=== PATIENT | female | born 1940 | race Caucasian/White ===

== ENCOUNTER 2022-03-17 14:17 | Inpatient (IN) ==
[2022-03-17] MEDS ORDERED: SODIUM CHLORIDE 0.9% 1000ML 1,000 ML IV SCH ×3 (14:45→22:37)
[2022-03-17 15:02] LABS: Hematocrit (blood only) 39.2 % (37-47); Hemoglobin 13.1 g/dL (12.0-16.0); Mean Corpuscular Hgb Conc 33.4 g/dL (32-36); Mean Corpuscular Volume 95.6 fL (80-100); Mean Platelet Volume 10.9 fL (7.4-10.4); Platelet Count 203 K/uL (130-400); RDW Coefficient of Variation 14.1 % (11.5-14.5); RDW Standard Deviation 49.6 fL (36.4-46.3); White Blood Count 13.39 K/uL (4.8-10.8)
--- NOTE | 2022-03-17 15:06 | Emergency Department Note ---
History of Present Illness General Chief complaint: Seizure Stated complaint: SEIZURE Time Seen by Provider: 03/17/22 14:27 Source: family Mode of arrival: EMS Limitations: altered mental status History of Present Illness Provider complaint: Seizure This is a 81-year-old female presents emergency department with at bedside via EMS after having a seizure at home. states he is her caregiver she requires total care due to advanced dementia. He states she is often nonverbal. He states she can no longer walk or get to the bathroom and he also has to feed her. He states this morning she seemed to have an episode where her eyes seem to roll back in her head and she began to shake. He states this lasted 5 to 10 minutes. He states during that interim he contacted 911 who advised him to get her out of her wheelchair and lay her on the floor on her side. He states she did appear to be drooling out of her mouth during that time. He states afterwards she seemed unresponsive as if she would fall to sleep. He denies any prior seizure history. No new medications. Pt seen during a time of high acuity and national emergency pandemic while wearing PPE. Home Medications Medication Instructions Recorded Confirmed Type acetaminophen 500 mg tablet 1,000 mg PO Q6H PRN 12/29/18 03/17/22 History aspirin 81 mg tablet,delayed 81 mg PO QAM 12/29/18 03/17/22 History release calcium carbonate 600 mg calcium 600 mg PO QAM 12/29/18 03/17/22 History (1,500 mg) tablet (Calcium) simvastatin 40 mg tablet 40 mg PO PM 12/29/18 03/17/22 History cholecalciferol (vitamin D3) 125 125 mcg PO DAILY 03/17/22 03/17/22 History mcg (5,000 unit) tablet (Vitamin D3) citalopram 10 mg tablet 10 mg PO Q OTHER DAY 03/17/22 03/17/22 History Allergies Allergy/AdvReac Type Severity Reaction Status Date / Time morphine AdvReac Unknown amnesia Verified 03/17/22 16:38 Past Med/Surg History Medical History (Updated 03/19/22 @ 23:35 by Becca Munguia DO) Alzheimer disease COPD (chronic obstructive pulmonary disease) Social History Smoking Status: Never smoker Second Hand Exposure: No; Do You Dip or Chew Tobacco: No; Tobacco Cessation Education Requested by Patient: No Hx Alcohol Use: No Hx Substance Use: No Preferred Language: Zambian Communication Ability: Unable Concession Manager Required: No Beliefs That Will Affect Care: None marital status: Current Living Situation: Spouse Other Information That Helps Us Care for You: Yes (right index finger doesn't straighten out) Feels Safe at Home: Yes Safety Concerns: Feels Safe At This Time Assistive Devices: Wheelchair Review of Systems A total of 10 systems reviewed and were otherwise negative All systems reviewed & are unremarkable except as noted in HPI & below Physical Exam Vital Signs Vital Signs - 24 hr 03/17/22 14:23 03/17/22 14:59 03/17/22 15:00 Temperature 36.8 C Temperature Source Oral Pulse Rate 103 H Pulse Rate [Left Apical] 112 H Pulse Rhythm [Left Apical] Regular Pulse Strength Normal Pulse Strength [Left Apical] Normal Respiratory Rate 17 20 Respiratory Effort / Characteristics Non-Labored Spontaneous Non-Labored Respiratory Depth Normal Normal Respiratory Pattern Blood Pressure 113/83 Blood Pressure [Left Arm] 105/68 Blood Pressure Mean 93 Blood Pressure Mean [Left Arm] 80 Blood Pressure Position Lying Blood Pressure Position [Left Arm] Lying Pulse Oximetry 95 95 Oxygen Delivery Method Nasal Cannula Nasal Cannula Room Air Oxygen Flow Rate 2 2 Sepsis Recent Fever Within 48 Hours No Sepsis New/Unexplained Change in Mental Status Yes Sepsis Action Taken by Nursing No Action Required 03/17/22 17:00 Temperature Temperature Source Pulse Rate Pulse Rate [Left Apical] 118 H Pulse Rhythm [Left Apical] Regular Pulse Strength Pulse Strength [Left Apical] Normal Respiratory Rate 18 Respiratory Effort / Characteristics Non-Labored Respiratory Depth Normal Respiratory Pattern Regular Blood Pressure Blood Pressure [Left Arm] 96/73 L Blood Pressure Mean Blood Pressure Mean [Left Arm] 80 Blood Pressure Position Blood Pressure Position [Left Arm] Lying Pulse Oximetry 94 Oxygen Delivery Method Room Air Oxygen Flow Rate Sepsis Recent Fever Within 48 Hours Sepsis New/Unexplained Change in Mental Status Sepsis Action Taken by Nursing GENERAL: alert, well appearing, well nourished, no distress, non-toxic EYE EXAM: normal conjunctiva, PERRL and EOM's grossly intact OROPHARYNX: no exudate, no erythema, lips, buccal mucosa, and tongue normal and mucous membranes are moist NECK: supple, no nuchal rigidity, no adenopathy, non-tender LUNGS: Clear to auscultation. Normal chest wall mechanics, no w/r/r HEART: no murmurs, S1 normal and S2 normal ABDOMEN: abdomen soft, non-tender, normo-active bowel sounds, no masses, no rebound or guarding. BACK: Back is symmetrical on inspection and there is no deformity, no midline tenderness, no CVA tenderness. SKIN: no rashes and no bruising UPPER EXTREMITIES: upper extremities are grossly normal. FROM, nml pulses b/l. LOWER EXTREMITIES: No pitting edema. FROM, nml pulses b/l. NEURO EXAM: Normal sensorium, cranial nerves II-XII grossly intact, normal speech, no gross weakness of arms, no gross weakness of legs. Gross sensation intact. Course Course 1800: Case discussed with neurology, Dr. Jim. Pt's updated at bedside. He is in agreement for her to be admitted. We discussed code status. 1901: I was notified by nursing staff that pt had an episode of vomiting that appears to darker and possibly had blood. Sample sent to lab for heme testing. 1919: Discucssed with Dr. Pardo. Protonix added for Gi bleed. Administered Medications Citalopram Hydrobromide (Citalopram 20 Mg Tab) 10 mg PO Q48H STEVE Stop: 04/17/22 08:59 Last Admin: 03/18/22 09:10 Dose: 10 mg Documented by: [id number] Pantoprazole Sodium 40 mg/ (Dextrose) 100 mls @ 20 mls/hr IV Q5H STEVE Stop: 04/16/22 19:44 Last Admin: 03/19/22 22:30 Dose: 8 mg/hr, 20 mls/hr Documented by: [id number] Infusion: 03/19/22 22:19 Dose: 8 mg/hr, 20 mls/hr Documented by: [id number] Admin: 03/19/22 17:19 Dose: 8 mg/hr, 20 mls/hr Documented by: [id number] Infusion: 03/19/22 16:33 Dose: 8 mg/hr, 20 mls/hr Documented by: [id number] Admin: 03/19/22 11:33 Dose: 8 mg/hr, 20 mls/hr Documented by: [id number] Infusion: 03/19/22 11:33 Dose: 8 mg/hr, 20 mls/hr Documented by: [id number] Infusion: 03/19/22 10:16 Dose: 8 mg/hr, 20 mls/hr Documented by: [id number] Infusion: 03/19/22 09:48 Dose: 0 mg/hr, 0 mls/hr Documented by: [id number] Admin: 03/19/22 06:20 Dose: 8 mg/hr, 20 mls/hr Documented by: [id number] Infusion: 03/19/22 06:20 Dose: 8 mg/hr, 20 mls/hr Documented by: [id number] Admin: 03/19/22 01:57 Dose: 8 mg/hr, 20 mls/hr Documented by: [id number] Infusion: 03/19/22 01:57 Dose: 8 mg/hr, 20 mls/hr Documented by: [id number] Infusion: 03/18/22 22:00 Dose: 8 mg/hr, 20 mls/hr Documented by: [id number] Infusion: 03/18/22 21:35 Dose: 0 mg/hr, 0 mls/hr Documented by: [id number] Admin: 03/18/22 21:30 Dose: 8 mg/hr, 20 mls/hr Documented by: [id number] Infusion: 03/18/22 21:00 Dose: 8 mg/hr, 20 mls/hr Documented by: [id number] Admin: 03/18/22 16:00 Dose: 8 mg/hr, 20 mls/hr Documented by: [id number] Infusion: 03/18/22 16:00 Dose: 8 mg/hr, 20 mls/hr Documented by: [id number] Admin: 03/18/22 11:00 Dose: 8 mg/hr, 20 mls/hr Documented by: [id number] Infusion: 03/18/22 11:00 Dose: 0 mg/hr, 0 mls/hr Documented by: [id number] Admin: 03/18/22 06:00 Dose: 8 mg/hr, 20 mls/hr Documented by: [id number] Infusion: 03/18/22 06:00 Dose: 8 mg/hr, 20 mls/hr Documented by: [id number] Admin: 03/18/22 01:28 Dose: 8 mg/hr, 20 mls/hr Documented by: [id number] Infusion: 03/18/22 01:21 Dose: 8 mg/hr, 20 mls/hr Documented by: [id number] Admin: 03/17/22 20:21 Dose: 8 mg/hr, 20 mls/hr Documented by: [id number] Levetiracetam 250 mg/ Sodium (Chloride) 102.5 mls @ 420 mls/hr IV Q12H STEVE Stop: 04/17/22 20:59 Last Infusion: 03/19/22 20:07 Dose: 0 mls/hr Documented by: [id number] Admin: 03/19/22 19:52 Dose: 420 mls/hr Documented by: [id number] Infusion: 03/19/22 10:15 Dose: 0 mls/hr Documented by: [id number] Admin: 03/19/22 09:57 Dose: 420 mls/hr Documented by: [id number] Infusion: 03/18/22 22:01 Dose: 0 mls/hr Documented by: [id number] Admin: 03/18/22 21:35 Dose: 420 mls/hr Documented by: [id number] Piperacillin Sod/Tazobactam (Sod 3.375 gm/ Dextrose) 115 mls @ 28.75 mls/hr IV Q8H STEVE; Protocol Stop: 03/21/22 01:59 Last Infusion: 03/19/22 21:54 Dose: 0 mls/hr Documented by: [id number] Admin: 03/19/22 17:54 Dose: 28.8 mls/hr Documented by: [id number] Infusion: 03/19/22 13:42 Dose: 0 mls/hr Documented by: [id number] Admin: 03/19/22 09:31 Dose: 28.8 mls/hr Documented by: [id number] Infusion: 03/19/22 09:24 Dose: 0 mls/hr Documented by: [id number] Admin: 03/19/22 03:18 Dose: 28.8 mls/hr Documented by: [id number] Sodium Chloride (Nss 1000ml) 1,000 mls @ 75 mls/hr IV .[id number] STEVE Stop: 03/20/22 00:38 Last Admin: 03/19/22 11:30 Dose: 75 mls/hr Documented by: [id number] Infusion: 03/19/22 11:03 Dose: 100 mls/hr Documented by: [id number] Admin: 03/19/22 01:03 Dose: 100 mls/hr Documented by: [id number] Simvastatin (Simvastatin 40 Mg Tab) 40 mg PO PM STEVE Stop: 04/16/22 22:36 Last Admin: 03/19/22 19:52 Dose: 40 mg Documented by: [id number] Admin: 03/18/22 21:40 Dose: 40 mg Documented by: [id number] Admin: 03/18/22 01:03 Dose: 40 mg Documented by: [id number] Vitamin D (Cholecalciferol 5,000 Units 125 Mcg Tab) 5,000 units PO DAILY STEVE Stop: 04/17/22 08:59 Last Admin: 03/19/22 09:57 Dose: 5,000 units Documented by: [id number] Admin: 03/18/22 09:10 Dose: 5,000 units Documented by: [id number] Discontinued Medications Sodium Chloride (Nss 1000ml) 1,000 mls @ 125 mls/hr IV .Q8H STEVE Stop: 04/16/22 14:44 Last Infusion: 03/17/22 23:59 Dose: 0 mls/hr Documented by: [id number] Admin: 03/17/22 14:49 Dose: 125 mls/hr Documented by: [id number] Levetiracetam 1,000 mg/ Sodium (Chloride) 110 mls @ 440 mls/hr IV NOW STA Stop: 03/17/22 18:24 Last Infusion: 03/17/22 19:45 Dose: 0 mls/hr Documented by: [id number] Admin: 03/17/22 19:26 Dose: 440 mls/hr Documented by: [id number] Pantoprazole Sodium 40 mg/ (Syringe) 10 mls @ 5 mls/min IV NOW ONE Stop: 03/17/22 19:11 Last Admin: 03/17/22 22:01 Dose: 5 mls/min Documented by: [id number] Sodium Chloride (Nss 1000ml) 1,000 mls @ 125 mls/hr IV .Q8H STEVE Stop: 04/16/22 19:44 Last Infusion: 03/18/22 00:01 Dose: 0 mls/hr Documented by: [id number] Admin: 03/17/22 20:22 Dose: 125 mls/hr Documented by: [id number] Sodium Chloride (Nss 1000ml) 1,000 mls @ 80 mls/hr IV .[id number] STEVE Stop: 03/18/22 11:06 Last Infusion: 03/18/22 12:48 Dose: 0 mls/hr Documented by: [id number] Admin: 03/17/22 23:55 Dose: 80 mls/hr Documented by: [id number] Levetiracetam 500 mg/ Sodium (Chloride) 105 mls @ 420 mls/hr IV Q12H STEVE Stop: 04/17/22 08:59 Last Infusion: 03/18/22 09:20 Dose: 0 mls/hr Documented by: [id number] Admin: 03/18/22 09:05 Dose: 420 mls/hr Documented by: [id number] Piperacillin Sod/Tazobactam (Sod 3.375 gm/ Dextrose) 115 mls @ 230 mls/hr IV NOW ONE; Protocol Stop: 03/18/22 21:44 Last Infusion: 03/18/22 22:31 Dose: 0 mls/hr Documented by: [id number] Admin: 03/18/22 21:55 Dose: 230 mls/hr Documented by: [id number] Sodium Chloride (Nss) 500 mls @ 500 mls/hr IV .Q1H STEVE Stop: 03/18/22 23:59 Last Infusion: 03/19/22 00:04 Dose: 0 mls/hr Documented by: [id number] Admin: 03/18/22 23:00 Dose: 500 mls/hr Documented by: [id number] Sodium Chloride (Nss) 500 mls @ 500 mls/hr IV .Q1H STEVE Stop: 03/19/22 00:44 Last Infusion: 03/19/22 01:04 Dose: 0 mls/hr Documented by: [id number] Admin: 03/19/22 00:03 Dose: 500 mls/hr Documented by: [id number] Magnesium Sulfate/Dextrose (Magnesium Sulfate / D5w) 1 gm in 100 mls @ 50 mls/hr IV ONE ONE Stop: 03/19/22 11:02 Last Infusion: 03/19/22 11:33 Dose: 0 mls/hr Documented by: [id number] Admin: 03/19/22 09:37 Dose: 50 mls/hr Documented by: [id number] Lorazepam (Lorazepam 2 Mg/1 Ml Vial) 0.5 mg IV NOW STA; Protocol Stop: 03/17/22 18:21 Last Admin: 03/17/22 22:01 Dose: Not Given Documented by: [id number] Metoprolol Tartrate (Metoprolol Tartrate 1 Mg/Ml Vial) 2.5 mg IV NOW STA Stop: 03/19/22 00:56 Last Admin: 03/19/22 01:04 Dose: 2.5 mg Documented by: [id number] Potassium Chloride (Potassium Chloride Pwd 20 Meq Pack) 20 meq PO NOW STA Stop: 03/17/22 17:47 Last Admin: 03/17/22 20:21 Dose: Not Given Documented by: [id number] Potassium Chloride (Potassium Chloride Crtab 20 Meq Tabcr) 40 meq PO ONE ONE Stop: 03/19/22 09:04 Last Admin: 03/19/22 10:00 Dose: Not Given Documented by: [id number] Potassium Chloride (Potassium Chloride 20 Meq/15 Ml Udc) 40 meq PO ONE ONE Stop: 03/19/22 09:31 Last Admin: 03/19/22 10:03 Dose: 40 meq Documented by: [id number] Critical Care Time Critical Care Time: Yes Total Critical Care Time: 35 Critical care of 35 min performed to assess and manage high likelihood of life- threatening seizure and GI bleed, involving labs and imaging performed with assessment to evaluate seizure and GI bleed diagnosis with frequent reassessment. This time includes bedside time, treatment discussions with pa tient/family/consultants, documentation time and excludes procedure time. Medical Decision Making Differential Diagnosis Differential diagnosis includes etiologies such as infection, hypoglycemia, electrolyte abnormalities, cardiac sources, intracerebral event, trauma, toxicologic, neurologic, as well as others were entertained. Medical Records Attestation: I reviewed the patient's medical records. Home Medications Current Medication List: was personally reviewed by me Laboratory Data Attestation: I reviewed the patient's lab results. Result diagrams: 03/19/22 06:11 03/19/22 06:11 Lab Results 03/17/22 03/17/22 03/17/22 Range/Units 14:49 14:49 14:49 WBC 13.39 H (4.8-10.8) K/uL RBC 4.10 L (4.2-5.4) M/uL Hgb 13.1 (12.0-16.0) g/dL Hct 39.2 (37-47) % MCV 95.6 (80-100) fL MCH 32.0 (25-34) pg MCHC 33.4 (32-36) g/dL RDW Std Deviation 49.6 H (36.4-46.3) fL RDW Coeff of Collette 14.1 (11.5-14.5) % Plt Count 203 (130-400) K/uL MPV 10.9 H (7.4-10.4) fL Immature Gran % (Auto) 2.5 % Neut % (Auto) 72.7 % Lymph % (Auto) 20.2 % Taney % (Auto) 4.0 % Eos % (Auto) 0.5 % Baso % (Auto) 0.1 % Neut # (Auto) 9.74 H (1.4-6.5) K/uL Lymph # (Auto) 2.70 (1.2-3.4) K/uL Taney # (Auto) 0.53 (0.11-0.59) K/uL Eos # (Auto) 0.07 (0-0.5) K/uL Baso # (Auto) 0.02 (0-0.2) K/uL Immature Gran # (Auto) 0.33 H (0.00-0.02) K/uL Polychromasia 1+ Sodium 138 (136-145) mmol/L Potassium 3.3 L (3.5-5.1) mmol/L Chloride 103 (98-107) mmol/L Carbon Dioxide 25 (21-32) mmol/L Anion Gap 10 (3-11) BUN 18 (6-23) mg/dl Creatinine 0.58 L (0.6-1.2) mg/dl Est Cr Clr Drug Dosing Not Reportable Est GFR ( Amer) 101.6 ml/min Est GFR (Non-Af Amer) 87.7 ml/min BUN/Creatinine Ratio 31.0 H (10-20) Glucose 150 H (70-99(Fasting)) mg/dl Calcium 9.3 (8.5-10.1) mg/dl Phosphorus (2.5-4.9) mg/dl Magnesium 1.9 (1.7-2.4) mg/dl Total Bilirubin 0.6 (0.2-1.0) mg/dl AST 23 (13-39) U/L ALT 26 (7-52) U/L Alkaline Phosphatase 50 (34-104) U/L Troponin I High Sens 12.6 (0-14) pg/ml Total Protein 6.8 (6.0-8.3) gm/dl Albumin 3.8 (3.4-5.0) gm/dl Globulin 3.0 (2.5-4.0) gm/dl Albumin/Globulin Ratio 1.3 (0.9-2) Lipase 10 L (11-82) U/L TSH 6.017 H (0.300-4.500) uIu/ml Free T4 0.81 (0.61-1.60) ng/dl Gastric Fluid pH Gastric Occult Blood (Negative) SARS-CoV-2, RNA, NAAT (NEGATIVE) 03/17/22 03/17/22 03/17/22 Range/Units 14:49 19:15 19:50 WBC (4.8-10.8) K/uL RBC (4.2-5.4) M/uL Hgb (12.0-16.0) g/dL Hct (37-47) % MCV (80-100) fL MCH (25-34) pg MCHC (32-36) g/dL RDW Std Deviation (36.4-46.3) fL RDW Coeff of Collette (11.5-14.5) % Plt Count (130-400) K/uL MPV (7.4-10.4) fL Immature Gran % (Auto) % Neut % (Auto) % Lymph % (Auto) % Taney % (Auto) % Eos % (Auto) % Baso % (Auto) % Neut # (Auto) (1.4-6.5) K/uL Lymph # (Auto) (1.2-3.4) K/uL Taney # (Auto) (0.11-0.59) K/uL Eos # (Auto) (0-0.5) K/uL Baso # (Auto) (0-0.2) K/uL Immature Gran # (Auto) (0.00-0.02) K/uL Polychromasia Sodium (136-145) mmol/L Potassium (3.5-5.1) mmol/L Chloride (98-107) mmol/L Carbon Dioxide (21-32) mmol/L Anion Gap (3-11) BUN (6-23) mg/dl Creatinine (0.6-1.2) mg/dl Est Cr Clr Drug Dosing Est GFR ( Amer) ml/min Est GFR (Non-Af Amer) ml/min BUN/Creatinine Ratio (10-20) Glucose (70-99(Fasting)) mg/dl Calcium (8.5-10.1) mg/dl Phosphorus 3.4 (2.5-4.9) mg/dl Magnesium (1.7-2.4) mg/dl Total Bilirubin (0.2-1.0) mg/dl AST (13-39) U/L ALT (7-52) U/L Alkaline Phosphatase (34-104) U/L Troponin I High Sens (0-14) pg/ml Total Protein (6.0-8.3) gm/dl Albumin (3.4-5.0) gm/dl Globulin (2.5-4.0) gm/dl Albumin/Globulin Ratio (0.9-2) Lipase (11-82) U/L TSH (0.300-4.500) uIu/ml Free T4 (0.61-1.60) ng/dl Gastric Fluid pH 2 Gastric Occult Blood Positive A (Negative) SARS-CoV-2, RNA, NAAT NEGATIVE (NEGATIVE) Imaging Data Radiologist's Impression: Chest X-Ray 03/17/22 14:36 XR chest 1V portable CLINICAL HISTORY: seizure. Evaluate cardiopulmonary status COMPARISON STUDY: 12/29/2018 TECHNIQUE: 1 view of the chest FINDINGS: Single frontal view of the chest demonstrates the heart size to be accentuated by the decreased inspiratory effort. The aorta is atherosclerotic and ectatic. The patient is rotated to the right with breast prosthesis superimposed over the right lung base. The lungs are clear of alveolar opacities. There is no evidence for pleural effusion. There is no evidence for vascular congestion. There is no acute osseous pathology. IMPRESSION: 1. Decreased inspiration with no acute chest disease as described. ACT 112: Negative or not required by law. Electronically signed by: Andres Beebe M.D. 03/17/2022 3:[address] 03/17/22 14:36 CT head/brain wo con CLINICAL HISTORY: new seizure . Altered mental status COMPARISON STUDY: 12/29/2018 CT DOSE: 998.18 mGy.cm TECHNIQUE: Standard CT of the Brain was performed without IV contrast. A dose lowering technique was utilized adhering to the principles of ALARA. FINDINGS: Extraaxial space: There is no evidence for subdural hematoma. There are no extra-axial fluid collections. Ventricles and cisterns: The ventricles are moderately dilated bilaterally. There is no evidence for midline shift or mass effect. Parenchyma: There is no subarachnoid or intraparenchymal hemorrhage. There is no evidence for an acute infarct or cerebral edema. There is mild cerebral cortical atrophy and decreased attenuation in the periventricular white matter representing remote small vessel disease. There are no gross mass lesions. Osseous structures: There is no evidence for an acute fracture. The visualized paranasal sinuses are clear. The mastoid air cells are clear bilaterally. Soft tissues: There is no evidence for focal soft tissue swelling. IMPRESSION: 1. No acute intracerebral pathology. 2. Cerebral cortical atrophy and remote small vessel disease. ACT 112: Negative or not required by law. Electronically signed by: Andres Beebe M.D. 03/17/2022 4:15 PM ECG Data Attestation: I personally reviewed and interpreted this ECG as follows: Indication: + altered mental status Rate (beats per minute): 104 Rhythm: + sinus tachycardia ECG Intervals/blocks: + Normal QRS and + Normal QT ECG Coleman: + Normal ECG ST segments: + Nonspecific ST abnormalities MDM Narrative An order was placed for continuous cardiac monitoring. The monitor shows a rate of _88__ with _normal sinus_ rhythm. This is an elderly demented female brought to the ER via EMS. provides history. No prior seizure history. No recent illness, medication changes, or fevers. Labs reassuring. We did have difficulty obtaining urine specimen due to patient ams/cooperation and chronic contractures. CT head reassuring. Se izures likely from worsening dementia. Leukocytosis likely from stress rxn from seizure. While awaiting discussion with hospitalist, pt had episode of vomiting and sample of emesis was sent to lab and confirmed this was heme positive. No anticoagulation, but pt does take ASA. had not noticed any change in appetite or stool. Protonix drip started as a precaution. Hospitalist updated on initial presentation as well as changes while in the ER. Patient was hemodynamically stable throughout. Impression & Plan Seizure, Alzheimer disease, Acute upper GI bleed Discharge Plan Visit Data Chief Complaint: Seizure Stated Complaint: SEIZURE Discharge Problem: Seizure, Alzheimer disease, Acute upper GI bleed Patient Disposition: Admitted As Inpatient Discharge Instructions Interventions: ED Discharge Assessment Last Done: 03/17/22 22:27
--- NOTE | 2022-03-17 15:18 | XRay Report ---
XR chest 1V portable CLINICAL HISTORY: seizure. Evaluate cardiopulmonary status COMPARISON STUDY: 12/29/2018 TECHNIQUE: 1 view of the chest FINDINGS: Single frontal view of the chest demonstrates the heart size to be accentuated by the decreased inspi ratory effort. The aorta is atherosclerotic and ectatic. The patient is rotated to the right with darius ast prosthesis superimposed over the right lung base. The lungs are clear of alveolar opacities. Ther e is no evidence for pleural effusion. There is no evidence for vascular congestion. There is no acut e osseous pathology. IMPRESSION: 1. Decreased inspiration with no acute chest disease as described. ACT 112: Negative or not required by law. Electronically signed by: Andres Beebe M.D. 03/17/2022 3:17 PM
[2022-03-17 15:28] LABS: Alanine Aminotransferase 26 U/L (7-52); Albumin Globulin Ratio 1.3 (0.9-2); Albumin Level 3.8 gm/dl (3.4-5.0); Alkaline Phosphatase 50 U/L (34-104); Anion Gap 10 (3-11); Aspartate Aminotransferase 23 U/L (13-39); Basophils # (auto) 0.02 K/uL (0-0.2); Basophils % (auto) 0.1 %; Bilirubin,Total 0.6 mg/dl (0.2-1.0); Blood Urea Nitrogen 18 mg/dl (6-23); Calcium 9.3 mg/dl (8.5-10.1); Carbon Dioxide 25 mmol/L (21-32); Chloride 103 mmol/L (98-107); Eosinophils # (auto) 0.07 K/uL (0-0.5); Eosinophils % (auto) 0.5 %; Est GFR (African American) 101.6 ml/min; Est GFR (Non-African American) 87.7 ml/min; Glucose 150 mg/dl (70-99(Fasting)); Immature Granulocytes # (auto) 0.33 K/uL (0.00-0.02); Immature Granulocytes % (auto) 2.5 %; Lipase 10 U/L (11-82); Lymphocytes % (auto) 20.2 %; Magnesium 1.9 mg/dl (1.7-2.4); Monocytes # (auto) 0.53 K/uL (0.11-0.59); Neutrophils # (auto) 9.74 K/uL (1.4-6.5); Neutrophils % (auto) 72.7 %; Polychromasia 1+; Potassium 3.3 mmol/L (3.5-5.1); Sodium 138 mmol/L (136-145); Total Protein 6.8 gm/dl (6.0-8.3)
[2022-03-17 15:32] LABS: Troponin I High Sensitivity 12.6 pg/ml (0-14)
[2022-03-17 15:40] LABS: Thyroid Stimulating Hormone 6.017 uIu/ml (0.300-4.500)
[2022-03-17 16:13] LABS: T4 Free Thyroxine 0.81 ng/dl (0.61-1.60)
--- NOTE | 2022-03-17 16:18 | CT Scan Report ---
CT head/brain wo con CLINICAL HISTORY: new seizure . Altered mental status COMPARISON STUDY: 12/29/2018 CT DOSE: 998.18 mGy.cm TECHNIQUE: Standard CT of the Brain was performed without IV contrast. A dose lowering technique was utilized adhering to the principles of ALARA. FINDINGS: Extraaxial space: There is no evidence for subdural hematoma. There are no extra-axial fluid collecti ons. Ventricles and cisterns: The ventricles are moderately dilated bilaterally. There is no evidence for midline shift or mass effect. Parenchyma: There is no subarachnoid or intraparenchymal hemorrhage. There is no evidence for an acut e infarct or cerebral edema. There is mild cerebral cortical atrophy and decreased attenuation in the periventricular white matter representing remote small vessel disease. There are no gross mass lesio ns. Osseous structures: There is no evidence for an acute fracture. The visualized paranasal sinuses are clear. The mastoid air cells are clear bilaterally. Soft tissues: There is no evidence for focal soft tissue swelling. IMPRESSION: 1. No acute intracerebral pathology. 2. Cerebral cortical atrophy and remote small vessel disease. ACT 112: Negative or not required by law. Electronically signed by: Andres Beebe M.D. 03/17/2022 4:15 PM
--- NOTE | 2022-03-17 17:35 | Electrocardiogram Report ---
Test Reason : Blood Pressure : / mmHG Vent. Rate : 104 BPM Atrial Rate : 104 BPM P-R Int : 200 ms QRS Dur : 080 ms QT Int : 340 ms P-R-T Axes : 052 000 075 degrees QTc Int : 447 ms Poor data quality, interpretation may be adversely affected Sinus tachycardia Nonspecific ST abnormality Abnormal ECG When compared with ECG of 29-DEC-2018 16:25, Vent. rate has increased BY [address] now depressed in Anterior leads Nonspecific T wave abnormality now evident in Anterolateral leads Confirmed by Aleksandr Melgar ([id number]) on 03/17/2022 5:35:32 PM Referred By: REFERRED SELF Confirmed By:Roberto Melgar
[2022-03-17] MEDS ORDERED: POTASSIUM CHLORIDE PWD 20 MEQ PACK PO STA (17:46)
[2022-03-17] MEDS ORDERED: levETIRAcetam 1,000 MG in 0.9 % SODIUM CHLORIDE 100 ML IV STA (18:10)
[2022-03-17] MEDS ORDERED: LORazepam 2 MG/1 ML VIAL IV STA (18:20)
[2022-03-17] MEDS ORDERED: PANTOprazole 40 MG in SYRINGE 0 ML IV ONE (19:10)
[2022-03-17 19:31] LABS: Gastric Occult Blood Positive (Negative); pH Gastric Fluid 2
[2022-03-17] MEDS: PANTOprazole 40 MG in DEXTROSE 5% 100 ML IV SCH (20:21)
[2022-03-17] MEDS ORDERED: ONDANSETRON INJ 2 MG/ML 2 ML VIAL IV PRN (22:37)
[2022-03-17] MEDS ORDERED: POLYETHYLENE (MIRALAX) 17 GM PACK PO PRN (22:37)
[2022-03-17] MEDS ORDERED: LORazepam 2 MG/1 ML VIAL IV PRN (22:37)
[2022-03-17] MEDS ORDERED: NITROGLYCERIN SL 0.4 MG/TAB TAB SL PRN (22:37)
--- NOTE | 2022-03-18 00:25 | History and Physical Report ---
DATE OF ADMISSION: 03/17/2022. 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 He feeds her, he bathes her. He says she could not even stand up. Today, she woke 3 hours later than usual,. He woke her up and put her in the chair. He thought that then she had a seizure episode. It lasted for around 5-10 minutes. No biting of tongue or incontinence during the episode. Generally she has incontinence of urine and stool, but during the episode, she did not have any incontinence. No recent fever or chills. He says couple of months ago, she had vomiting that seemed to have blood in it, but after that it resolved. In the ER, she had a coffee-ground vomitus and gastric content was positive for Hemoccult. denies any diarrhea. Could not get any history from the patient. Hemodynamically stable. She was loaded with Keppra. ALLERGIES: MORPHINE. PAST MEDICAL HISTORY: As mentioned above. PAST SURGICAL HISTORY: Right total knee arthroplasty, carpal tunnel surgery, colonoscopy, ligation of the oviducts, radical removal of the breast, cataract surgery, revision of left total hip joint surgery. MEDICATIONS: The patient is on Tylenol 1000 mg p.o. q. 6 hours p.r.n., aspirin 81 mg p.o. a.m., calcium carbonate 600 mg p.o. a.m., vitamin D 125 mcg p.o. daily, citalopram 10 mg p.o. daily, simvastatin 40 mg p.o. daily. FAMILY HISTORY: Significant for brother had breast cancer, diabetes, heart disorder; mother has heart disorder and breast cancer; sister has lung cancer and diabetes. SOCIAL HISTORY: , no smoking, no alcohol, no drug use. REVIEW OF SYSTEMS: As per HPI. Rest of the review of systems is negative. PHYSICAL EXAMINATION: GENERAL: The patient is of moderate build, not in acute distress. VITAL SIGNS: Temperature 36.8, pulse 108, respiratory rate 17, blood pressure 106/87, oxygen 93% on room air. HEENT: Pupils equal, round, and reactive to light. Oral mucosa moist. NECK: No JVD, no neck masses. CARDIOVASCULAR: S1 and S2 heard. Regular rate and rhythm. No murmur, no gallop. RESPIRATORY SYSTEM: Normal AP diameter. No accessory muscle use. No wheezing, no crackles. ABDOMEN: Soft. Bowel sounds are present, no distention, nontender. CENTRAL NERVOUS SYSTEM: Nonverbal,tremors seen, not oriented, does not obey any commands. EXTREMITIES: No edema, no erythema. LABORATORY DATA: WBC 13, hemoglobin 13.1, hematocrit 39.2, platelets 203. Sodium 138, potassium 3.3, chloride 103, bicarb 25, BUN 18, creatinine 0.8, serum glucose 150, calcium 9.3, phosphorus 3.4, magnesium 1.9, total bilirubin 0.6, AST 23, ALT 26, alkaline phosphatase 50. Troponin I high sensitivity 12.6. Lipase 10. TSH 6.017, free T4 of 0.8. Gastric occult blood positive. SARS-CoV-2 rapid test negative. IMAGING DATA: CT of the head without contrast, no acute intracranial pathology, cerebral cortical atrophy and remote small vessel disease. Chest x-ray, no acute disease in the chest. EKG: Sinus tachycardia at a rate of 104. Nonspecific ST abnormalities. ASSESSMENT AND PLAN: This is a 81-year-old female who has severe Alzheimer disease, nonambulatory status, and nonverbal, takes care of her at home, presents with a seizure episode, first episode. 1. Seizure, first episode: History of severe dementia with Alzheimer disease. ER spoke with neurology, loaded with Keppra iv 1 gram, would continue with IV Keppra 500 b.i.d. and IV Ativan p.r.n. for breakthrough seizures. Will order EEG. CT head was no acute findings. Monitor closely in tele floor. Consult neurology in the a.m. for further recommendations. 2. Severe Alzheimer disease, bedbound, nonverbal: The patient needs help with feeding. Monitor for any delirium. 3. History of depression: Continue citalopram. 4. History of hyperlipidemia: Continue statin. 5. Gastrointestinal bleed: The patient had coffee-ground vomitus in the ER, which was positive for blood. Hemoglobin stable at 12, Blood consent obtained,on phone consent with talking to her . Will follow H and H. ER started on Protonix drip, which will be continued. Will hold aspirin. is okay for EGD if needed. 6. Deep venous thrombosis prophylaxis: Sequential compression devices for now. DISPOSITION: Closely monitor in the tele floor. Code status DNR/DNI as per my . Discharge back home with her when stable. Job ID: [id number] MTDMary
[2022-03-18] MEDS: SIMVASTATIN 40 MG TAB PO SCH ×2 (01:03→21:40)
[2022-03-18] MEDS: PANTOprazole 40 MG in DEXTROSE 5% 100 ML IV SCH ×5 (01:28→21:30)
[2022-03-18 06:13] LABS: Hematocrit (blood only) 33.1 % (37-47); Immature Granulocytes # (auto) 0.03 K/uL (0.00-0.02); Immature Granulocytes % (auto) 0.2 %; Lymphocytes # (auto) 0.81 K/uL (1.2-3.4); Lymphocytes % (auto) 5.9 %; Mean Corpuscular Hemoglobin 31.6 pg (25-34); Mean Corpuscular Hgb Conc 33.2 g/dL (32-36); Mean Corpuscular Volume 95.1 fL (80-100); Monocytes # (auto) 0.71 K/uL (0.11-0.59); Monocytes % (auto) 5.2 %; Neutrophils # (auto) 12.13 K/uL (1.4-6.5); Neutrophils % (auto) 88.7 %; Platelet Count 158 K/uL (130-400); RDW Coefficient of Variation 14.4 % (11.5-14.5); RDW Standard Deviation 50.1 fL (36.4-46.3); Red Blood Count 3.48 M/uL (4.2-5.4); White Blood Count 13.68 K/uL (4.8-10.8)
[2022-03-18 06:38] LABS: Anion Gap 7 (3-11); BUN Creatinine Ratio 43.9 (10-20); Blood Urea Nitrogen 25 mg/dl (6-23); Calcium 8.4 mg/dl (8.5-10.1); Carbon Dioxide 24 mmol/L (21-32); Chloride 106 mmol/L (98-107); Est GFR (African American) 102.2 ml/min; Est GFR (Non-African American) 88.2 ml/min; Glucose 149 mg/dl (70-99(Fasting)); Magnesium 1.7 mg/dl (1.7-2.4); Potassium 3.8 mmol/L (3.5-5.1); Sodium 137 mmol/L (136-145)
[2022-03-18 06:49] LABS: Appearance Urine Turbid (Clear); Bacteria Urine Automated Negative (Negative); Bilirubin Urine Negative (Negative); Blood Urine 1+ (Negative); Color Urine Dark Yellow; Epithelial Cell Urine Auto >30 /lpf (0-5); Glucose Urine UA Negative (Negative); Ketones Urine Negative (Negative); Leukocyte Esterase Urine Negative (Negative); Nitrite Urine Negative (Negative); Protein Urine Trace (Negative); Specific Gravity Urine 1.029 (1.000-1.030); Urobilinogen Urine Negative (Negative)
[2022-03-18] MEDS ORDERED: levETIRAcetam 500 MG in 0.9 % SODIUM CHLORIDE 100 ML IV SCH (09:00)
[2022-03-18] MEDS: CHOLECALCIFEROL 5,000 UNITS 125 MCG TAB PO SCH (09:10)
[2022-03-18] MEDS: CITALOPRAM 20 MG TAB PO SCH (09:10)
--- NOTE | 2022-03-18 09:50 | Neurology Progress Note ---
Date of Service March 18, 2022 Assessment & Plan (1) Alzheimer disease: Plan: 1. end stage dementia 2. DNR, DNI 3. once stable ok to return home- will need assistance from care mtg 4. continue current medications as tolerated 5. wants to get her home to take care of her he feels she may be failing quickly 6. start keppra 250 mg q 12 hours no follow up in neurology clinic - she was seen in our office several years ago and at that time no intervention was offered. (2) Observed seizure-like activity: Plan: 1. keppra was loaded 2. EEG generalized slowing Admission and Anticipated Discharge Date Admission Date: March 17, 2022 Supervising Physician Co-Signing Physician Notes I have seen and discussed above patient with Dr Yumiko Jim, neurologyxz. Patient discussed with Yumiko Mckay and patient seen at the bedside. Wilmar phan with end-stage Alzheimer's disease with what sounds like a witnessed seizure. EEG showing diffuse slowing CT of the head noncontrast not show any concerning etiology. Patients with Alzheimer's disease have a higher risk of seizures. Agree with the reduction of the dose of Keppra to 250 mg twice daily and will see if episodes resolve with that dosing without any adverse effects such as sedation If not could increase dose subsequently to 500 mg twice daily. No objection to hospital discharge to home. 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 He feeds her, he bathes does not stand. She woke 3 hours later than usual. (which would be 15 hours of total sleep) He woke her and put her in the chair. He thought that then she had a seizure episode. It lasted for around 5-10 minutes. No biting of tongue or incontinence during the episode.She is incontinent of urine and stool. He says couple of months ago, she had vomiting that seemed to have blood in it, but after that it resolved.She presented to [facility] ER 03/18/2022 and had a coffee-ground vomitus and gastric content was positive for Hemoccult. She was loaded with Keppra. currently she is minimally responsive. Her is bedside and feels this is a big "step down" with the dementia. She has been eating for him at home and voiding her bowel on the toilet. but other than that she has been incontinent unable to do a ROS Review of Systems Review of Systems: Unobtainable due to cognitive status Physical Exam Physical Exam: Physical Exam: Constitutional: appearance nourished Ears, Nose, Mouth and Throat: mucous membranes moist, no injection and skin normal, eyes normal Cardiovascular: normal S-1 and S-2 and regular rate and rhythm Respiratory: course breath sounds Musculoskeletal: no peripheral edema and good distal pulses Skin: no stigmata of neurocutaneous disease noted and normal and intact Eyes: non focal open eye with command NEUROLOGIC EXAMINATION: Mental status: Alert and minimally interactive Oriented to person Speech gargles Cranial Nerves facial symmetry Reflexes: Deep tendon reflexes were symmetrical and graded 2/5. down going toes Sensory: responses to light and cool touch Coordination: unable to assess Gait/Stance: Posture lying in bed Strength: unable to assess due to cognitive issues Results & Data ([facility]) Vital Signs (Past 12 Hours) Vital Signs Temp Pulse Resp BP Pulse Ox 03/18/22 08:19 37.3 C 98 H 22 124/61 92 03/18/22 03:47 37.7 C H 89 16 98/59 L 94 03/17/22 22:49 37.2 C 105 H 18 133/69 94 Laboratory Results Abnormal lab results 03/17/22 03/17/22 03/17/22 Range/Units 14:49 14:49 14:49 WBC 13.39 H (4.8-10.8) K/uL RBC 4.10 L (4.2-5.4) M/uL Hgb (12.0-16.0) g/dL Hct (37-47) % RDW Std Deviation 49.6 H (36.4-46.3) fL MPV 10.9 H (7.4-10.4) fL Neut # (Auto) 9.74 H (1.4-6.5) K/uL Lymph # (Auto) (1.2-3.4) K/uL [place] # (Auto) (0.11-0.59) K/uL Immature Gran # (Auto) 0.33 H (0.00-0.02) K/uL Potassium 3.3 L (3.5-5.1) mmol/L BUN (6-23) mg/dl Creatinine 0.58 L (0.6-1.2) mg/dl BUN/Creatinine Ratio 31.0 H (10-20) Glucose 150 H (70-99(Fasting)) mg/dl Calcium (8.5-10.1) mg/dl Lipase 10 L (11-82) U/L TSH 6.017 H (0.300-4.500) uIu/ml Urine Appearance (Clear) Urine Protein (Negative) Urine Blood (Negative) Urine WBC (Auto) (0-5) /hpf Urine RBC (Auto) (0-4) /hpf U Epithel Cells (Auto) (0-5) /lpf Gastric Occult Blood (Negative) 03/17/22 03/18/22 03/18/22 Range/Units 19:15 05:26 05:26 WBC 13.68 H (4.8-10.8) K/uL RBC 3.48 L (4.2-5.4) M/uL Hgb 11.0 L (12.0-16.0) g/dL Hct 33.1 L (37-47) % RDW Std Deviation 50.1 H (36.4-46.3) fL MPV 11.0 H (7.4-10.4) fL Neut # (Auto) 12.13 H (1.4-6.5) K/uL Lymph # (Auto) 0.81 L (1.2-3.4) K/uL [place] # (Auto) 0.71 H (0.11-0.59) K/uL Immature Gran # (Auto) 0.03 H (0.00-0.02) K/uL Potassium (3.5-5.1) mmol/L BUN 25 H (6-23) mg/dl Creatinine 0.57 L (0.6-1.2) mg/dl BUN/Creatinine Ratio 43.9 H (10-20) Glucose 149 H (70-99(Fasting)) mg/dl Calcium 8.4 L (8.5-10.1) mg/dl Lipase (11-82) U/L TSH (0.300-4.500) uIu/ml Urine Appearance (Clear) Urine Protein (Negative) Urine Blood (Negative) Urine WBC (Auto) (0-5) /hpf Urine RBC (Auto) (0-4) /hpf U Epithel Cells (Auto) (0-5) /lpf Gastric Occult Blood Positive A (Negative) 03/18/22 Range/Units 06:35 WBC (4.8-10.8) K/uL RBC (4.2-5.4) M/uL Hgb (12.0-16.0) g/dL Hct (37-47) % RDW Std Deviation (36.4-46.3) fL MPV (7.4-10.4) fL Neut # (Auto) (1.4-6.5) K/uL Lymph # (Auto) (1.2-3.4) K/uL [place] # (Auto) (0.11-0.59) K/uL Immature Gran # (Auto) (0.00-0.02) K/uL Potassium (3.5-5.1) mmol/L BUN (6-23) mg/dl Creatinine (0.6-1.2) mg/dl BUN/Creatinine Ratio (10-20) Glucose (70-99(Fasting)) mg/dl Calcium (8.5-10.1) mg/dl Lipase (11-82) U/L TSH (0.300-4.500) uIu/ml Urine Appearance Turbid A (Clear) Urine Protein Trace H (Negative) Urine Blood 1+ H (Negative) Urine WBC (Auto) 5-10 H (0-5) /hpf Urine RBC (Auto) 5-10 H (0-4) /hpf U Epithel Cells (Auto) >30 H (0-5) /lpf Gastric Occult Blood (Negative) Diagnostic Findings CT head- . No acute intracerebral pathology. Cerebral cortical atrophy and r emote small vessel disease. CXR-Single frontal view of the chest demonstrates the heart size to be accentuated by the decreased inspiratory effort. The aorta is atherosclerotic and ectatic. The patient is rotated to the right with breast prosthesis superimposed over the right lung base. The lungs are clear of alveolar opacities. There is no evidence for pleural effusion. There is no evidence for v ascular congestion. There is no acute osseous pathology. EEG-Mild to moderate generalized nonspecifically abnormal EEG without focality without associated potentially epileptiform activity
[2022-03-18 11:43] LABS: Hematocrit (blood only) 31.1 % (37-47); Hemoglobin 10.4 g/dL (12.0-16.0)
--- NOTE | 2022-03-18 11:46 | Electrocardiogram Report ---
Test Reason : Blood Pressure : / mmHG Vent. Rate : 079 BPM Atrial Rate : 079 BPM P-R Int : 204 ms QRS Dur : 072 ms QT Int : 404 ms P-R-T Axes : 082 005 022 degrees QTc Int : 463 ms Poor data quality, interpretation may be adversely affected Probably Normal sinus rhythm with sinus arrhythmia Normal ECG When compared with ECG of 17-MAR-2022 14:47, Nonspecific T wave abnormality no longer evident in Anterolateral leads Confirmed by Aleksandr Melgar ([id number]) on 03/18/2022 11:45:51 AM Referred By: REFERRED SELF Confirmed By:Roberto Melgar
--- NOTE | 2022-03-18 12:28 | Electroencephalogram ---
EEG Procedure Note Date of Service March 18, 2022 Start / End Times Start Time: 0840 End Time: [address] Pardo History Advanced disease with seizure activity Home Medication List Medication Instructions Recorded Confirmed Type acetaminophen 500 mg tablet 1,000 mg PO Q6H PRN 12/29/18 03/17/22 History aspirin 81 mg tablet,delayed 81 mg PO QAM 12/29/18 03/17/22 History release calcium carbonate 600 mg calcium 600 mg PO QAM 12/29/18 03/17/22 History (1,500 mg) tablet (Calcium) simvastatin 40 mg tablet 40 mg PO PM 12/29/18 03/17/22 History cholecalciferol (vitamin D3) 125 125 mcg PO DAILY 03/17/22 03/17/22 History mcg (5,000 unit) tablet (Vitamin D3) citalopram 10 mg tablet 10 mg PO Q OTHER DAY 03/17/22 03/17/22 History Inpatient Medication List Citalopram Hydrobromide (Citalopram 20 Mg Tab) 10 mg PO Q48H STEVE Stop: 04/17/22 08:59 Last Admin: 03/18/22 09:10 Dose: 10 mg Documented by: [id number] Pantoprazole Sodium 40 mg/ (Dextrose) 100 mls @ 20 mls/hr IV Q5H STEVE Stop: 04/16/22 19:44 Last Admin: 03/18/22 11:00 Dose: 8 mg/hr, 20 mls/hr Documented by: [id number] Infusion: 03/18/22 11:00 Dose: 0 mg/hr, 0 mls/hr Documented by: [id number] Admin: 03/18/22 06:00 Dose: 8 mg/hr, 20 mls/hr Documented by: [id number] Infusion: 03/18/22 06:00 Dose: 8 mg/hr, 20 mls/hr Documented by: [id number] Admin: 03/18/22 01:28 Dose: 8 mg/hr, 20 mls/hr Documented by: [id number] Infusion: 03/18/22 01:21 Dose: 8 mg/hr, 20 mls/hr Documented by: [id number] Admin: 03/17/22 20:21 Dose: 8 mg/hr, 20 mls/hr Documented by: [id number] Levetiracetam 500 mg/ Sodium (Chloride) 105 mls @ 420 mls/hr IV Q12H STEVE Stop: 04/17/22 08:59 Last Infusion: 03/18/22 09:20 Dose: 0 mls/hr Documented by: [id number] Admin: 03/18/22 09:05 Dose: 420 mls/hr Documented by: [id number] Simvastatin (Simvastatin 40 Mg Tab) 40 mg PO PM STEVE Stop: 04/16/22 22:36 Last Admin: 03/18/22 01:03 Dose: 40 mg Documented by: [id number] Vitamin D (Cholecalciferol 5,000 Units 125 Mcg Tab) 5,000 units PO DAILY STEVE Stop: 04/17/22 08:59 Last Admin: 03/18/22 09:10 Dose: 5,000 units Documented by: [id number] Discontinued Medications Sodium Chloride (Nss 1000ml) 1,000 mls @ 125 mls/hr IV .Q8H STEVE Stop: 04/16/22 14:44 Last Infusion: 03/17/22 23:59 Dose: 0 mls/hr Documented by: [id number] Admin: 03/17/22 14:49 Dose: 125 mls/hr Documented by: [id number] Levetiracetam 1,000 mg/ Sodium (Chloride) 110 mls @ 440 mls/hr IV NOW STA Stop: 03/17/22 18:24 Last Infusion: 03/17/22 19:45 Dose: 0 mls/hr Documented by: [id number] Admin: 03/17/22 19:26 Dose: 440 mls/hr Documented by: [id number] Pantoprazole Sodium 40 mg/ (Syringe) 10 mls @ 5 mls/min IV NOW ONE Stop: 03/17/22 19:11 Last Admin: 03/17/22 22:01 Dose: 5 mls/min Documented by: [id number] Sodium Chloride (Nss 1000ml) 1,000 mls @ 125 mls/hr IV .Q8H STEVE Stop: 04/16/22 19:44 Last Infusion: 03/18/22 00:01 Dose: 0 mls/hr Documented by: [id number] Admin: 03/17/22 20:22 Dose: 125 mls/hr Documented by: [id number] Sodium Chloride (Nss 1000ml) 1,000 mls @ 80 mls/hr IV .[id number] STEVE Stop: 03/18/22 11:06 Last Admin: 03/17/22 23:55 Dose: 80 mls/hr Documented by: [id number] Lorazepam (Lorazepam 2 Mg/1 Ml Vial) 0.5 mg IV NOW STA; Protocol Stop: 03/17/22 18:21 Last Admin: 03/17/22 22:01 Dose: Not Given Documented by: [id number] Potassium Chloride (Potassium Chloride Pwd 20 Meq Pack) 20 meq PO NOW STA Stop: 03/17/22 17:47 Last Admin: 03/17/22 20:21 Dose: Not Given Documented by: [id number] Description This is a 21 electrode EEG with a single channel dedicated to limited EKG. The electrodes were placed in accordance with the International 10-20 system. This EEG was done as a bedside recording on a patient who was moving back and forth and has quite a bit of muscle movement artifact. No clinical seizure activity was seen on video analysis patient. Photic stimulation was performed. Under these conditions there is a background rhythm in the upper theta range at 7 to 8 Hz maximum frequency which appears to be maximum posterior head regions and bilateral symmetrical. Polymorphic mid to lower frequency moderate amplitude theta activity intermixed with waveforms in the delta range is seen diffusely over all head regions and is symmetrical. Beta activity is really clearly seen Clinic stimulation provokes minimal response No potentially epileptiform discharges are seen Interpretation Mild to moderate generalized nonspecifically abnormal EEG without focality without associated potentially epileptiform activity Clinical Correlation Current study is consistent with a generalized encephalopathy of nonfocal type. No potential epileptiform activity seen but its absence does not illuminate his seizure disorder. The current study could reflect a post ictal state but in light of the diagnosis of advanced Alzheimer's disease may also reflect the presence of the underlying degenerative disorder Deangelo immaturity
--- NOTE | 2022-03-18 16:45 | Hospitalist Progress Note ---
Date of Service March 18, 2022 Assessment & Plan (1) Observed seizure-like activity: Plan: Patient is a 81 yr female with H/O severe Alzheimer disease, nonambulatory status, and nonverbal, takes care of her at home, presents with a seizure episode, first episode. Seizure Acute metabolic Encephalopathy H/O Severe Dementia --EEG:Mild to moderate generalized nonspecifically abnormal EEG without focality without associated potentially epileptiform activity --CT Head:No acute intracerebral pathology. Cerebral cortical atrophy and remote small vessel disease. Continue Keppra Ativan as needed Seizure precautions Appreciate neurology input Needs follow-up with neurology upon discharge Severe Alzheimer disease Bedbound, nonverbal at baseline Mental status progressively worsened as per family Case management to help with discharge planning Depression Continue Citalopram Hyperlipidemia Continue statin GI bleed Continue PPI drip Monitor H&H GI consulted Avoid anticoagulation for now Continue to hold aspirin DVT Px: SCDs CODE STATUS DNI DNR Disposition To be determined Admission and Anticipated Discharge Date Admission Date: March 17, 2022 Subjective Patient is seen and examined at bedside Patient is nonverbal and does not follow commands Discussed with neurology and patient's family at bedside No seizure activity since hospitalization No distress on exam Review of Systems Review of Systems: Unobtainable due to cognitive status Physical Exam Physical Exam: Physical Exam: Vitals signs as noted above General Appearance:Thin, chronic ill appearing, Elderly, no apparent distress Head: normocephalic, Atraumatic Eyes: normal inspection, EOMI Neck: supple, Trachea midline Respiratory/Chest: Normal breath sounds, CTA, No accessory muscle use Cardiovascular: S1, S2, No murmur Abdomen/GI:Soft, Non tender, Bowel sounds present Extremities/Musculoskeletal:normal inspection, no edema Neurologic/Psych:Doesn't follow commands, +Dementia, Nonverbal, Essential tremor Skin: normal color, warm Results & Data Results & Data ([facility]) Vital Signs (Past 12 Hours) Vital Signs Temp Pulse Resp BP Pulse Ox 03/18/22 11:36 37.4 C 81 18 130/65 91 03/18/22 08:19 37.3 C 98 H 22 124/61 92 Laboratory Results Short CBC 03/18/22 03/18/22 Range/Units 05:26 11:31 WBC 13.68 H (4.8-10.8) K/uL Hgb 11.0 L 10.4 L (12.0-16.0) g/dL Hct 33.1 L 31.1 L (37-47) % Plt Count 158 (130-400) K/uL BMP 03/18/22 05:26 Sodium 137 Potassium 3.8 Chloride 106 Carbon Dioxide 24 BUN 25 H Creatinine 0.57 L Glucose 149 H Calcium 8.4 L Urine 03/18/22 Range/Units 06:35 Urine Color Dark Yellow Urine Appearance Turbid A (Clear) Urine pH 5.0 (4.5-7.5) Ur Specific [place] 1.029 (1.000-1.030) Urine Protein Trace H (Negative) Urine Glucose (UA) Negative (Negative)
--- NOTE | 2022-03-18 18:39 | Gastrointestinal Consultation ---
Date of Consultation March 18, 2022 Assessment & Plan (1) Coffee ground emesis: Due to recent seizure, Alzheimers, general frailty, she would be high risk for complications from sedation and undergoing EGD would not likely change her outcome. Instead, recommend that you continue with a PPI drip for approx 48 hrs today, empirically treating ulcers if present, then BID PPI x a month. Would avoid NSAIDs and anticoagulation if possible. Recommend liquid diet until no vomiting for 24 hrs then may advance. Gi will watch peripherally, please notify us if dramatic drop in Hb/Hct and increase in BUN - would need to have a conversation with the family about goals of care. Supervising Physician Co-Signing Physician Notes Late entry: Patient was seen and examined with ANNIKA Marques on 03/18. Her note reflects our findings and plan. History of Present Illness Reason for Consultation: coffee ground vomitus Requesting Physician: Dr. Pardo Attending Physician: Prince Horta MD History of Present Illness Ms. 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 She was brought to the ED late yesterday for a seizure. Coffee grounds emesis was documented and GI is consulted. Hb was 13 on arrival and 11 this morning. BUN 25. Allergies Allergy/AdvReac Type Severity Reaction Status Date / Time morphine AdvReac Unknown amnesia Verified 03/17/22 16:38 Home Medications Medication Instructions Recorded Confirmed Type acetaminophen 500 mg tablet 1,000 mg PO Q6H PRN 12/29/18 03/17/22 History aspirin 81 mg tablet,delayed 81 mg PO QAM 12/29/18 03/17/22 History release calcium carbonate 600 mg calcium 600 mg PO QAM 12/29/18 03/17/22 History (1,500 mg) tablet (Calcium) simvastatin 40 mg tablet 40 mg PO PM 12/29/18 03/17/22 History cholecalciferol (vitamin D3) 125 125 mcg PO DAILY 03/17/22 03/17/22 History mcg (5,000 unit) tablet (Vitamin D3) citalopram 10 mg tablet 10 mg PO Q OTHER DAY 03/17/22 03/17/22 History Patient History Medical History (Updated 03/18/22 @ 18:38 by ANNIKA Burroughs) Alzheimer disease COPD (chronic obstructive pulmonary disease) Social History Smoking Status: Never smoker Second Hand Exposure: No; Do You Dip or Chew Tobacco: No; Tobacco Cessation Education Requested by Patient: No Hx Alcohol Use: No Hx Substance Use: No Preferred Language: Tanzanian Communication Ability: Unable Specialist 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 Beliefs That Will Affect Care: None marital status: Current Living Situation: Spouse Other Information That Helps Us Care for You: Yes (right index finger doesn't straighten out) Feels Safe at Home: Yes Safety Concerns: Feels Safe At This Time Assistive Devices: Wheelchair Review of Systems Review of Systems: Pt is unable to provide a ROS Physical Exam Constitutional: + ill appearing, + thin, + behavioral limitations (non verbal) and + frail appearing Neck: trachea midline, no thyromegaly Respiratory: normal respiratory effort, lungs clear to auscultation Cardiovascular: RRR, no murmur, no edema Gastrointestinal (Abdomen): Pt does not seem to indicate any discomfort with palpation, but is in the position Musculoskeletal: contractures Psychiatric: non verbal, non communicative Results & Data ([facility]) Vital Signs (Past 12 Hours) Vital Signs Temp Pulse Pulse Resp BP Pulse Ox 03/18/22 17:12 88 03/18/22 11:36 37.4 C 81 18 130/65 91 03/18/22 08:19 37.3 C 98 H 22 124/61 92 Laboratory Results WBC 13.68, Hb 11, Hct 33, plts 158, Na 137, K 3.8, CL 106, CO2 24, BUN 25, Cr 0.57
[2022-03-18 18:45] LABS: Hematocrit (blood only) 30.2 % (37-47)
[2022-03-18] MEDS ORDERED: PIPERACILLIN/TAZOBACTAM 3.375 GM in DEXTROSE 5% 100 ML IV ONE (21:15)
[2022-03-18] MEDS: levETIRAcetam 250 MG in 0.9 % SODIUM CHLORIDE 100 ML IV SCH (21:35)
[2022-03-18] MEDS ORDERED: SODIUM CHLORIDE 0.9% 500 ML IV SCH ×2 (23:00→23:45)
[2022-03-18 23:24] LABS: Hematocrit (blood only) 28.8 % (37-47); Hemoglobin 9.8 g/dL (12.0-16.0)
[2022-03-19] MEDS ORDERED: METOPROLOL TARTRATE 1 MG/ML VIAL IV STA (00:55)
[2022-03-19] MEDS: SODIUM CHLORIDE 0.9% 1000ML 1,000 ML IV SCH ×2 (01:03→11:30)
[2022-03-19] MEDS: PANTOprazole 40 MG in DEXTROSE 5% 100 ML IV SCH ×5 (01:57→22:30)
[2022-03-19] MEDS: PIPERACILLIN/TAZOBACTAM 3.375 GM in DEXTROSE 5% 100 ML IV SCH ×3 (03:18→17:54)
[2022-03-19 06:58] LABS: Hematocrit (blood only) 28.3 % (37-47); Hemoglobin 9.5 g/dL (12.0-16.0); Mean Corpuscular Hgb Conc 33.6 g/dL (32-36); Mean Corpuscular Volume 95.3 fL (80-100); Mean Platelet Volume 11.3 fL (7.4-10.4); Platelet Count 104 K/uL (130-400); RDW Coefficient of Variation 14.6 % (11.5-14.5); RDW Standard Deviation 50.8 fL (36.4-46.3); Red Blood Count 2.97 M/uL (4.2-5.4); White Blood Count 11.39 K/uL (4.8-10.8)
[2022-03-19 07:18] LABS: BUN Creatinine Ratio 41.1 (10-20); Calcium 8.2 mg/dl (8.5-10.1); Creatinine Clr Calc Pharmacy 67.4 ml/min; Est GFR (African American) 102.8 ml/min; Est GFR (Non-African American) 88.7 ml/min; Magnesium 1.7 mg/dl (1.7-2.4); Potassium 3.3 mmol/L (3.5-5.1)
[2022-03-19] MEDS ORDERED: POTASSIUM CHLORIDE CRTAB 20 MEQ TABCR PO ONE (09:03)
[2022-03-19] MEDS ORDERED: MAGNESIUM SULFATE / D5W 1 GM/100 ML BAG IV ONE (09:03)
[2022-03-19] MEDS ORDERED: POTASSIUM CHLORIDE 20 MEQ/15 ML UDC PO ONE (09:30)
[2022-03-19] MEDS: CHOLECALCIFEROL 5,000 UNITS 125 MCG TAB PO SCH (09:57)
[2022-03-19] MEDS: levETIRAcetam 250 MG in 0.9 % SODIUM CHLORIDE 100 ML IV SCH ×2 (09:57→19:52)
--- NOTE | 2022-03-19 10:15 | Gastroenterology Progress Note ---
Date of Service March 19, 2022 Assessment & Plan (1) Coffee ground emesis: Plan: Even though hemoglobin is drifting down, we are not sure of what her baseline is. Due to recent seizure, Alzheimer's general frailty, will continue to treat conservatively may change PPI drip to IV twice daily or p.o. if she takes p.o. medications. Please avoid NSAIDs and anticoagulation if possible. GI will sign off. Please notify us of any gross GI bleeding. Admission and Anticipated Discharge Date Admission Date: March 17, 2022 Supervising Physician Co-Signing Physician Notes Patient was seen and examined with ANNIKA Marques whose note reflects our findings and plan. Conservative management in the absence of overt on-going GI bleeding. Subjective 81-year-old female, admitted for seizure. GI consulted for episode of hematemesis and downward drifting hemoglobin. Spoke with the RN today who says she is unaware of any gross GI bleeding since that initial episode of hematemesis. Unsure the patient's hemoglobin baseline though it was at 13 when she arrived and is 9.5 today BUN was 25, and is stayed essentially normal. Review of Systems Review of Systems: Patient is unable to provide ROS Physical Exam Constitutional: + ill appearing, + thin, + behavioral limitations (non verbal) and + frail appearing Neck: trachea midline, no thyromegaly Respiratory: normal respiratory effort, lungs clear to auscultation Cardiovascular: RRR, no murmur, no edema Gastrointestinal (Abdomen): normal bowel sounds, soft, nontender, no hepatosplenomegaly Musculoskeletal: Contractures Neurologic: Speech / Cognition: + expressive aphasia; normal cognition Nonambulatory Psychiatric: Does not appear uncomfortable or agitated Lymphatic: no cervical or axillary lymphadenopathy Results & Data ([facility]) Vital Signs (Past 12 Hours) Vital Signs Temp Pulse Pulse Resp BP Pulse Ox 03/19/22 08:01 37.2 C 96 H 18 114/69 94 03/19/22 03:57 37.3 C 95 H 18 123/70 95 03/19/22 01:07 37.3 C 03/19/22 01:04 100 H 03/19/22 01:01 97 H 110/65 03/18/22 23:34 37.8 C H 126 H 20 109/72 95 03/18/22 22:15 130 H 20 88/50 L 95 Laboratory Results WBC 11.3, Hb 9.5, HCT 28.3, glucose 104, NA 136, K3.3, CL 107, CO2 24, BUN 23, CR 0.56, glucose 124
--- NOTE | 2022-03-19 11:12 | XRay Report ---
XR chest 1V portable CLINICAL HISTORY: hypoxia TECHNIQUE: Single frontal radiograph of the chest was obtained. Comparison: Comparison is made to chest radiograph 03/17/2022 FINDINGS: No lines and tubes are seen. Cardiomegaly is noted. The lungs are clear. No evidence of pleural effus ion or pneumothorax. IMPRESSION: No acute chest disease. ACT 112: Negative or not required by law. Electronically signed by: Winston Owens M.D. 03/19/2022 11:10 AM
--- NOTE | 2022-03-19 14:26 | Cardiology Consultation ---
Date of Consultation March 19, 2022 Assessment & Plan (1) Paroxysmal atrial flutter: (2) Alzheimer disease: (3) Observed seizure-like activity: (4) Coffee ground emesis: 81-year-old female with Alzheimer's type dementia with severe debilitation with possible observed seizure activity at home. Initial presentation patient in sinus tachycardia but labs transiently in atrial fibrillation with spontaneous conversion several hours later. No further arrhythmias since admission. Impression: Transient atrial fibrillation post hospitalization, acute seizure Plan: We will formally review echocardiogram but overall LV systolic function appears preserved on preliminary images. There is moderate to severe mitral tricuspid insufficiency Would recommend supplementing potassium to greater than 4 Consider adding low-dose beta-shirin with metoprolol succinate 12.5 mg/day as condition allows Poor anticoagulation candidate, would not initiate currently or in the future Will sign off contact with questions History of Present Illness Reason for Consultation: Paroxysmal atrial fibrillation Requesting Physician: Dr. Horta Attending Physician: Prince Horta MD History of Present Illness Patient is a 81-year-old female with Alzheimer's type dementia with severe dementia cared for her at home. Patient unable to offer any verbal information. Information obtained from review of records in chart. Patient had acute decline while at home with possible witnessed seizure. Patient treated and loaded with Keppra in the emergency room. On ER presentation patient found to be in sinus tachycardia to 104 bpm. Patient later that evening lapsed into atrial fibrillation/flutter with subsequent spontaneous conversion this morning at 1237. She is in sinus rhythm since this morning. Recent history notable for possible hematemesis not confirmed but overall declining hemoglobin is noted. Allergies Allergy/AdvReac Type Severity Reaction Status Date / Time morphine AdvReac Unknown amnesia Verified 03/17/22 16:38 Home Medications Medication Instructions Recorded Confirmed Type acetaminophen 500 mg tablet 1,000 mg PO Q6H PRN 12/29/18 03/17/22 History aspirin 81 mg tablet,delayed 81 mg PO QAM 12/29/18 03/17/22 History release calcium carbonate 600 mg calcium 600 mg PO QAM 12/29/18 03/17/22 History (1,500 mg) tablet (Calcium) simvastatin 40 mg tablet 40 mg PO PM 12/29/18 03/17/22 History cholecalciferol (vitamin D3) 125 125 mcg PO DAILY 03/17/22 03/17/22 History mcg (5,000 unit) tablet (Vitamin D3) citalopram 10 mg tablet 10 mg PO Q OTHER DAY 03/17/22 03/17/22 History Patient History Medical History (Updated 03/19/22 @ 14:37 by Janusz Luna MD) Alzheimer disease COPD (chronic obstructive pulmonary disease) Social History Smoking Status: Never smoker Second Hand Exposure: No; Do You Dip or Chew Tobacco: No; Tobacco Cessation Education Requested by Patient: No Hx Alcohol Use: No Hx Substance Use: No Preferred Language: Swedish Communication Ability: Unable Safety Compliance Specialist Required: No Beliefs That Will Affect Care: None marital status: Current Living Situation: Spouse Other Information That Helps Us Care for You: Yes (right index finger doesn't straighten out) Feels Safe at Home: Yes Safety Concerns: Feels Safe At This Time Assistive Devices: Wheelchair Review of Systems Review of Systems: Unobtainable due to cognitive status Physical Exam Constitutional: + thin Severely debilitated appearing elderly female, nonverbal ENMT: external ear and nose normal, oropharynx normal Neck: trachea midline, no thyromegaly Respiratory: normal respiratory effort, lungs clear to auscultation Cardiovascular: Rate/Rhythm: regular rate and regular rhythm Gastrointestinal (Abdomen): Percussion/Palpation: abdomen soft; no guarding Psychiatric: Orientation: + uncooperative Results & Data ([facility]) Vital Signs (Past 12 Hours) Vital Signs Temp Pulse Pulse Resp BP Pulse Ox 03/19/22 11:40 36.7 C 79 17 101/63 97 03/19/22 10:40 76 03/19/22 08:01 37.2 C 96 H 18 114/69 94 03/19/22 03:57 37.3 C 95 H 18 123/70 95 Laboratory Results Laboratory Results - last 24 hr 03/18/22 03/18/22 03/19/22 18:31 23:06 06:11 WBC 11.39 H RBC 2.97 L Hgb 10.0 L 9.8 L 9.5 L Hct 30.2 L 28.8 L 28.3 L MCV 95.3 MCH 32.0 MCHC 33.6 RDW Std Deviation 50.8 H RDW Coeff of Collette 14.6 H Plt Count 104 L MPV 11.3 H Sodium Potassium Chloride Carbon Dioxide Anion Gap BUN Creatinine Est Cr Clr Drug Dosing Est GFR ( Amer) Est GFR (Non-Af Amer) BUN/Creatinine Ratio Glucose Calcium Magnesium 03/19/22 06:11 WBC RBC Hgb Hct MCV MCH MCHC RDW Std Deviation RDW Coeff of Collette Plt Count MPV Sodium 136 Potassium 3.3 L Chloride 107 Carbon Dioxide 24 Anion Gap 5 BUN 23 Creatinine 0.56 L Est Cr Clr Drug Dosing 67.4 Est GFR ( Amer) 102.8 Est GFR (Non-Af Amer) 88.7 BUN/Creatinine Ratio 41.1 H Glucose 124 H Calcium 8.2 L Magnesium 1.7
--- NOTE | 2022-03-19 16:12 | Hospitalist Progress Note ---
Date of Service March 19, 2022 Assessment & Plan (1) Observed seizure-like activity: Plan: Patient is a 81 yr female with H/O severe Alzheimer disease, nonambulatory status, and nonverbal, takes care of her at home, presents with a seizure episode, first episode. Seizure Acute metabolic Encephalopathy H/O Severe Dementia --EEG:Mild to moderate generalized nonspecifically abnormal EEG without focality without associated potentially epileptiform activity --CT Head:No acute intracerebral pathology. Cerebral cortical atrophy and remote small vessel disease. Continue Keppra Ativan as needed Seizure precautions Appreciate neurology input Needs follow-up with neurology upon discharge SIRS No clear source of Infection CXR:No acute chest disease Blood Cultures pending UA not suggestive of UTI Empirically on Zosyn Paroxysmal Atrial Flutter --ECHO: Mild concentric LVH. Left ventricle wall motion is normal. EF 55 to 60%. Mild prolapse of posterior mitral valve leaflet. Mild to moderate MR. Moderate tricuspid regurgitation. Spontaneously converted to sinus Appreciate cardiology input Will consider to add low-dose metoprolol succinate 12.5 mg daily when BP more stable Poor candidate for anticoagulation Continue gentle IV fluids Monitor electrolytes Hypokalemia Replace as needed Severe Alzheimer disease Bedbound, nonverbal at baseline Mental status progressively worsened as per family Case management to help with discharge planning Depression Continue Citalopram Hyperlipidemia Continue statin GI bleed Continue PPI drip Monitor H&H GI consulted Avoid anticoagulation for now Continue to hold aspirin Plan to transition IV PPI BID tomorrow DVT Px: SCDs CODE STATUS DNI DNR Disposition To be determined Admission and Anticipated Discharge Date Admission Date: March 17, 2022 Subjective Patient is seen and examined at bedside Patient is nonverbal and does not follow commands Getting ECHO during my encounter No family at bedside Had transient Atrial flutter overnight No distress on exam Afebrile today Review of Systems Review of Systems: Unobtainable due to cognitive status Physical Exam Physical Exam: Physical Exam: Vitals signs as noted above General Appearance:Thin, chronic ill appearing, Elderly, no apparent distress Head: normocephalic, Atraumatic Eyes: normal inspection, EOMI Neck: supple, Trachea midline Respiratory/Chest: Normal breath sounds, CTA, No accessory muscle use Cardiovascular: S1, S2, No murmur Abdomen/GI:Soft, Non tender, Bowel sounds present Extremities/Musculoskeletal:normal inspection, no edema Neurologic/Psych:Doesn't follow commands, +Dementia, Nonverbal, Essential tremor Skin: normal color, warm Results & Data Results & Data ([facility]) Vital Signs (Past 12 Hours) Vital Signs Temp Pulse Pulse Resp BP Pulse Ox 03/19/22 15:55 36.6 C 84 18 106/64 95 03/19/22 11:40 36.7 C 79 17 101/63 97 03/19/22 10:40 76 03/19/22 08:01 37.2 C 96 H 18 114/69 94 Laboratory Results Short CBC 03/18/22 03/18/22 03/19/22 Range/Units 18:31 23:06 06:11 WBC 11.39 H (4.8-10.8) K/uL Hgb 10.0 L 9.8 L 9.5 L (12.0-16.0) g/dL Hct 30.2 L 28.8 L 28.3 L (37-47) % Plt Count 104 L (130-400) K/uL BMP 03/19/22 06:11 Sodium 136 Potassium 3.3 L Chloride 107 Carbon Dioxide 24 BUN 23 Creatinine 0.56 L Glucose 124 H Calcium 8.2 L
[2022-03-19 16:40] LABS: Appearance Urine Clear (Clear); Bacteria Urine Automated Negative (Negative); Bilirubin Urine Negative (Negative); Blood Urine 1+ (Negative); Color Urine Dark Yellow; Glucose Urine UA Negative (Negative); Ketones Urine Negative (Negative); Leukocyte Esterase Urine Negative (Negative); Nitrite Urine Negative (Negative); Protein Urine Trace (Negative); Urobilinogen Urine Negative (Negative)
[2022-03-19 17:00] LABS: RBC Urine Automated 0-4 /hpf (0-4)
--- NOTE | 2022-03-19 19:03 | Electrocardiogram Report ---
Test Reason : Blood Pressure : / mmHG Vent. Rate : 136 BPM Atrial Rate : 133 BPM P-R Int : 000 ms QRS Dur : 070 ms QT Int : 362 ms P-R-T Axes : 000 -22 -20 degrees QTc Int : 544 ms Poor data quality, interpretation may be adversely affected Atrial fibrillation with rapid ventricular response with premature ventricular or aberrantly conducte d complexes Nonspecific ST and T wave abnormality Abnormal ECG When compared with ECG of 18-MAR-2022 10:20, Atrial fibrillation has replaced Sinus rhythm Vent. rate has increased BY [address] now depressed in Lateral leads Nonspecific T wave abnormality, worse in Inferior leads T wave inversion now evident in Anterior leads Confirmed by Aleksandr Melgar ([id number]) on 03/19/2022 7:02:44 PM Referred By: REFERRED SELF Confirmed By:Roberto Melgar
[2022-03-19] MEDS ORDERED: LORazepam 1 MG in SYRINGE 0.5 ML IV PRN (19:39)
[2022-03-19] MEDS: SIMVASTATIN 40 MG TAB PO SCH (19:52)
[2022-03-20] MEDS: PIPERACILLIN/TAZOBACTAM 3.375 GM in DEXTROSE 5% 100 ML IV SCH ×3 (01:42→16:55)
[2022-03-20] MEDS: PANTOprazole 40 MG in DEXTROSE 5% 100 ML IV SCH ×4 (03:20→16:53)
[2022-03-20 07:40] LABS: Hematocrit (blood only) 27.7 % (37-47); Hemoglobin 9.3 g/dL (12.0-16.0); Mean Corpuscular Hemoglobin 31.3 pg (25-34); Mean Corpuscular Hgb Conc 33.6 g/dL (32-36); Mean Corpuscular Volume 93.3 fL (80-100); RDW Coefficient of Variation 14.5 % (11.5-14.5); RDW Standard Deviation 49.7 fL (36.4-46.3); Red Blood Count 2.97 M/uL (4.2-5.4); White Blood Count 9.65 K/uL (4.8-10.8)
[2022-03-20 07:52] LABS: BUN Creatinine Ratio 42.5 (10-20); Creatinine Clr Calc Pharmacy 94.3 ml/min; Est GFR (African American) 114.8 ml/min; Est GFR (Non-African American) 99.1 ml/min; Magnesium 1.7 mg/dl (1.7-2.4)
[2022-03-20 08:06] LABS: Mean Platelet Volume 10.7 fL (7.4-10.4); Platelet Count 96 K/uL (130-400); Platelet Estimate Decreased (Normal)
[2022-03-20] MEDS: CHOLECALCIFEROL 5,000 UNITS 125 MCG TAB PO SCH (08:07)
[2022-03-20] MEDS: levETIRAcetam 250 MG in 0.9 % SODIUM CHLORIDE 100 ML IV SCH ×2 (08:07→20:44)
[2022-03-20] MEDS: CITALOPRAM 20 MG TAB PO SCH (08:07)
[2022-03-20] MEDS: POTASSIUM CHLORIDE 20 MEQ/15 ML UDC PO SCH ×2 (10:29→16:53)
--- NOTE | 2022-03-20 13:32 | Urology Consultation ---
Date of Consultation March 20, 2022 Assessment & Plan (1) Urinary retention: 81-year-old female with Alzheimer's type dementia with severe debilitationadmitted with seizure activity, transient atrial fibrillation, hematemesis. She had multiple bladder scans ranging from 100-400 cc and a Cuevas catheter was placed for urinary retention. - Urology consulted for urinary retention. - Pt is afebrile, hemodynamically stable. - Labs reviewed - Wbc 9.65, Creatinine 0.40. - Urine and blood cultures preliminary no growth. - On empiric Zosyn as she developed fever with unclear source of infection. - Cuevas catheter intact, draining clear yellow urine. - Recommend maintaining Cuevas catheter for now. - Can attempt voiding trial prior to discharge or when patient is back to baseline. - Continue supportive care and close monitoring. - Urology will sign-off, please contact us with any further questions, concerns, or changes in patient status. History of Present Illness Reason for Consultation: Urinary retention Attending Physician: Prince Horta MD History of Present Illness 81-year-old female with a past medical history significant for Alzheimer's disease, Hyperlipidemia, essential tremor, history of breast cancer, depression, nonambulatory status, and nonverbal admitted with seizure activity, transient atrial fibrillation, hematemesis. Urology consulted for urinary retention. Per chart review, patient mostly incontinent of urine at baseline. Initially a purewick external catheter was utilized for monitoring of urine output. However, nursing noted minimal urine output with purewick catheter. A bladder scan was performed showing 400 mL, patient straight cathed for 500 mL. Urinalysis showing 1+ blood, negative nitrates, negative leukocytes, negative bacteria. A urine culture is preliminary no growth. Subsequent bladder scans range from 100 -400 mL. A Cuevas catheter was placed on 03/20 by nursing. Of note, pt developed fever on 03/18. Unclear source of infection. Patient was empirically started on Zosyn. Blood cultures were obtained. Patient examined at bedside this afternoon. Awake, resting in bed. No acute distress. Cuevas catheter intact, draining clear yellow urine. at bedside. Patient lives at home with . He is the primary caregiver. He states she is mostly incontinent at baseline. HPI limited due to cognitive status. Allergies Allergy/AdvReac Type Severity Reaction Status Date / Time morphine AdvReac Unknown amnesia Verified 03/17/22 16:38 Home Medications Medication Instructions Recorded Confirmed Type acetaminophen 500 mg tablet 1,000 mg PO Q6H PRN 12/29/18 03/17/22 History aspirin 81 mg tablet,delayed 81 mg PO QAM 12/29/18 03/17/22 History release calcium carbonate 600 mg calcium 600 mg PO QAM 12/29/18 03/17/22 History (1,500 mg) tablet (Calcium) simvastatin 40 mg tablet 40 mg PO PM 12/29/18 03/17/22 History cholecalciferol (vitamin D3) 125 125 mcg PO DAILY 03/17/22 03/17/22 History mcg (5,000 unit) tablet (Vitamin D3) citalopram 10 mg tablet 10 mg PO Q OTHER DAY 03/17/22 03/17/22 History Patient History Medical History Alzheimer disease COPD (chronic obstructive pulmonary disease) Urinary retention Social History Smoking Status: Never smoker Second Hand Exposure: No; Do You Dip or Chew Tobacco: No; Tobacco Cessation Education Requested by Patient: No Hx Alcohol Use: No Hx Substance Use: No Preferred Language: Scottish Communication Ability: Unable Splunk Dashboard Developer Required: No Beliefs That Will Affect Care: None marital status: Current Living Situation: Spouse Other Information That Helps Us Care for You: Yes (right index finger doesn't straighten out) Feels Safe at Home: Yes Safety Concerns: Feels Safe At This Time Assistive Devices: Wheelchair Review of Systems Review of Systems: Unobtainable due to cognitive status Physical Exam Constitutional: + ill appearing and + frail appearing; no acute distress Neck: normal visual inspection Respiratory: no respiratory distress and no labored breathing Gastrointestinal (Abdomen): Inspection/Auscultation: abdomen normal to inspection Musculoskeletal: Head/Neck/Chest: normocephalic Skin: No visible rashes or lesions Neurologic: Underlying dementia, nonverbal, does not follow commands Genitourinary: Cuevas catheter intact, draining clear yellow urine Results & Data ([facility]) Vital Signs (Past 12 Hours) Vital Signs Temp Pulse Pulse Resp BP BP Pulse Ox 03/20/22 12:09 37.7 C H 97 H 15 160/81 H 97 06/15/22 09:47 96 H 03/20/22 07:18 37.2 C 92 H 15 150/75 H 95 03/20/22 05:52 37.8 C H 03/20/22 04:52 38.4 C H 92 H 20 146/69 H 92 PG Care Time/CCT Total # of Minutes Spent Total Time Spent with Patient: Total time spent is greater than 50% in coordination of care (as documented) at patient's floor/unit and/or counseling patient: Coding Level of Care Code 85851 Initial Inpt Care Lvl 2 Diagnoses Urinary retention R33.9
[2022-03-20] MEDS ORDERED: METOPROLOL TARTRATE 1 MG/ML VIAL IV PRN (18:13)
[2022-03-20] MEDS: METOPROLOL SUCC 25MG EXT REL TAB PO SCH (18:41)
--- NOTE | 2022-03-20 18:48 | Hospitalist Progress Note ---
Date of Service March 20, 2022 Assessment & Plan (1) Observed seizure-like activity: Plan: Patient is a 81 yr female with H/O severe Alzheimer disease, nonambulatory status, and nonverbal, takes care of her at home, presents with a seizure episode, first episode. Seizure Acute metabolic Encephalopathy H/O Severe Dementia --EEG:Mild to moderate generalized nonspecifically abnormal EEG without focality without associated potentially epileptiform activity --CT Head:No acute intracerebral pathology. Cerebral cortical atrophy and remote small vessel disease. Continue Keppra Ativan as needed Seizure precautions Appreciate neurology input Needs follow-up with neurology upon discharge Mental status better today No aggressive measures as per family SIRS No clear source of Infection CXR:No acute chest disease Blood Cultures no growth to date Urine culture negative Empirically on Zosyn Paroxysmal Atrial Flutter --ECHO: Mild concentric LVH. Left ventricle wall motion is normal. EF 55 to 60%. Mild prolapse of posterior mitral valve leaflet. Mild to moderate MR. Moderate tricuspid regurgitation. Spontaneously converted to sinus Appreciate cardiology input Start on Metoprolol succinate 12.5 mg daily Poor candidate for anticoagulation IV Lopressor PRN Monitor electrolytes Hypokalemia Replace as needed Severe Alzheimer disease Bedbound, nonverbal at baseline Mental status progressively worsened as per family Case management to help with discharge planning Urine Retention Continue Cuevas Appreciate urology for Voiding trial prior to discharge Depression Continue Citalopram Hyperlipidemia Continue statin GI bleed Continue PPI drip Monitor H&H GI consulted Avoid anticoagulation for now Continue to hold aspirin Continue IV PPI BID No aggressive measures as per family DVT Px: SCDs CODE STATUS DNI DNR Disposition To be determined Admission and Anticipated Discharge Date Admission Date: March 17, 2022 Subjective Patient is seen and examined at bedside Patient is nonverbal and does not follow commands More alert, awake today Tachycardia on monitor Also had urinary retention Discussed with patient's family at bedside: No aggressive measures as per family Review of Systems Review of Systems: Unobtainable due to cognitive status Physical Exam Physical Exam: Physical Exam: Vitals signs as noted above General Appearance:Thin, chronic ill appearing, Elderly, no apparent distress Head: normocephalic, Atraumatic Eyes: normal inspection, EOMI Neck: supple, Trachea midline Respiratory/Chest: Normal breath sounds, CTA, No accessory muscle use Cardiovascular: S1, S2, No murmur Abdomen/GI:Soft, Non tender, Bowel sounds present Extremities/Musculoskeletal:normal inspection, no edema Neurologic/Psych:Doesn't follow commands, +Dementia, Nonverbal, Essential tremor Skin: normal color, warm Results & Data Results & Data ([facility]) Vital Signs (Past 12 Hours) Vital Signs Temp Pulse Pulse Resp BP BP Pulse Ox 03/20/22 18:42 128 H 03/20/22 17:38 95 H 03/20/22 15:28 37.5 C 94 H 15 124/75 93 03/20/22 12:09 37.7 C H 97 H 15 160/81 H 97 03/20/22 09:47 96 H 03/20/22 07:18 37.2 C 92 H 15 150/75 H 95
[2022-03-20] MEDS ORDERED: MAGNESIUM SULFATE / D5W 1 GM/100 ML BAG IV ONE (18:51)
[2022-03-20] MEDS: PANTOprazole 40 MG in SYRINGE 0 ML IV SCH (20:31)
[2022-03-20] MEDS: CIPROFLOXACIN HCL 0.3% OP SOLN 2.5 ML BTL OP SCH (20:31)
[2022-03-20] MEDS: SIMVASTATIN 40 MG TAB PO SCH (20:32)
[2022-03-20] MEDS: ACETAMINOPHEN 325 MG TAB PO PRN (23:36)
[2022-03-21] MEDS: PIPERACILLIN/TAZOBACTAM 3.375 GM in DEXTROSE 5% 100 ML IV SCH ×3 (01:17→18:52)
[2022-03-21 06:42] LABS: Hematocrit (blood only) 26.7 % (37-47); Mean Corpuscular Hemoglobin 31.1 pg (25-34); Mean Corpuscular Hgb Conc 33.7 g/dL (32-36); Mean Corpuscular Volume 92.4 fL (80-100); Mean Platelet Volume 11.3 fL (7.4-10.4); Platelet Count 106 K/uL (130-400); RDW Coefficient of Variation 14.1 % (11.5-14.5); RDW Standard Deviation 47.9 fL (36.4-46.3); Red Blood Count 2.89 M/uL (4.2-5.4); White Blood Count 8.76 K/uL (4.8-10.8)
[2022-03-21 06:55] LABS: Calcium 7.8 mg/dl (8.5-10.1); Creatinine Clr Calc Pharmacy 89.8 ml/min; Est GFR (Non-African American) 97.5 ml/min; Magnesium 1.9 mg/dl (1.7-2.4); Potassium 3.1 mmol/L (3.5-5.1)
[2022-03-21] MEDS: levETIRAcetam 250 MG in 0.9 % SODIUM CHLORIDE 100 ML IV SCH (08:27)
[2022-03-21] MEDS: CIPROFLOXACIN HCL 0.3% OP SOLN 2.5 ML BTL OP SCH ×2 (08:28→20:28)
[2022-03-21] MEDS: PANTOprazole 40 MG in SYRINGE 0 ML IV SCH ×2 (08:28→20:27)
[2022-03-21] MEDS: METOPROLOL SUCC 25MG EXT REL TAB PO SCH (08:28)
[2022-03-21] MEDS: CHOLECALCIFEROL 5,000 UNITS 125 MCG TAB PO SCH (08:28)
[2022-03-21] MEDS: POTASSIUM CHLORIDE 20 MEQ/15 ML UDC PO SCH ×2 (08:29→08:41)
[2022-03-21] MEDS: POTASSIUM CHLORIDE CRTAB 20 MEQ TABCR PO SCH ×3 (09:46→20:27)
[2022-03-21] MEDS: POTASSIUM CHLORIDE / WTR 10 MEQ/100 ML PLCT IV SCH ×2 (09:48→11:38)
--- NOTE | 2022-03-21 17:29 | Hospitalist Progress Note ---
Date of Service March 21, 2022 Assessment & Plan (1) Observed seizure-like activity: Plan: Patient is a 81 yr female with H/O severe Alzheimer disease, nonambulatory status, and nonverbal, takes care of her at home, presents with a seizure episode, first episode. Seizure Acute metabolic Encephalopathy H/O Severe Dementia --EEG:Mild to moderate generalized nonspecifically abnormal EEG without focality without associated potentially epileptiform activity --CT Head:No acute intracerebral pathology. Cerebral cortical atrophy and remote small vessel disease. Continue Keppra Ativan as needed Seizure precautions Appreciate neurology input Needs follow-up with neurology upon discharge No aggressive measures as per family Mental status seemed to back to baseline SIRS No clear source of Infection CXR:No acute chest disease Blood Cultures: No growth Urine culture negative Empirically on Zosyn Paroxysmal Atrial Flutter --ECHO: Mild concentric LVH. Left ventricle wall motion is normal. EF 55 to 60%. Mild prolapse of posterior mitral valve leaflet. Mild to moderate MR. Moderate tricuspid regurgitation. Spontaneously converted to sinus Appreciate cardiology input Continue Metoprolol succinate 12.5 mg daily Poor candidate for anticoagulation IV Lopressor PRN Monitor electrolytes Hypokalemia Replace as needed Severe Alzheimer disease Bedbound, nonverbal at baseline Mental status progressively worsened as per family Case management to help with discharge planning Urine Retention Continue Cuevas Appreciate urology for Voiding trial prior to discharge Depression Continue Citalopram Hyperlipidemia Continue statin GI bleed Continue PPI drip Monitor H&H GI consulted Avoid anticoagulation for now Continue to hold aspirin Continue IV PPI BID No aggressive measures as per family DVT Px: SCDs CODE STATUS DNI DNR Disposition To be determined Admission and Anticipated Discharge Date Admission Date: March 17, 2022 Subjective Patient is seen and examined at bedside Patient is nonverbal and does not follow commands Had fever overnight Pleasantly confused No family at bedside Review of Systems Review of Systems: All systems reviewed & are unremarkable except as noted in Subjective Physical Exam Physical Exam: Physical Exam: Vitals signs as noted above General Appearance:Thin, chronic ill appearing, Elderly, no apparent distress Head: normocephalic, Atraumatic Eyes: normal inspection, EOMI Neck: supple, Trachea midline Respiratory/Chest: Normal breath sounds, CTA, No accessory muscle use Cardiovascular: S1, S2, No murmur Abdomen/GI:Soft, Non tender, Bowel sounds present Extremities/Musculoskeletal:normal inspection, no edema Neurologic/Psych:Doesn't follow commands, +Dementia, Nonverbal, Essential tremor Skin: normal color, warm Results & Data Results & Data ([facility]) Vital Signs (Past 12 Hours) Vital Signs Temp Pulse Pulse Resp BP BP Pulse Ox 03/21/22 15:12 36.9 C 81 19 110/58 L 99 03/21/22 11:29 36.8 C 83 18 108/65 96 03/21/22 11:19 85 03/21/22 07:01 36.9 C 82 19 112/52 L 95 Laboratory Results Short CBC 03/21/22 Range/Units 06:21 WBC 8.76 (4.8-10.8) K/uL Hgb 9.0 L (12.0-16.0) g/dL Hct 26.7 L (37-47) % Plt Count 106 L (130-400) K/uL BMP 03/21/22 06:21 Sodium 136 Potassium 3.1 L Chloride 105 Carbon Dioxide 26 BUN 13 Creatinine 0.42 L Glucose 112 H Calcium 7.8 L
[2022-03-21] MEDS: ACETAMINOPHEN 325 MG TAB PO PRN (19:42)
[2022-03-21] MEDS: levETIRAcetam 250 MG TAB PO SCH (20:27)
[2022-03-21] MEDS: SIMVASTATIN 40 MG TAB PO SCH (20:28)
[2022-03-22] MEDS: PIPERACILLIN/TAZOBACTAM 3.375 GM in DEXTROSE 5% 100 ML IV SCH ×2 (01:06→11:04)
[2022-03-22 07:22] LABS: Hematocrit (blood only) 28.1 % (37-47); Hemoglobin 9.4 g/dL (12.0-16.0); Mean Corpuscular Hgb Conc 33.5 g/dL (32-36); Mean Corpuscular Volume 92.7 fL (80-100); Mean Platelet Volume 10.6 fL (7.4-10.4); Platelet Count 136 K/uL (130-400); RDW Coefficient of Variation 14.6 % (11.5-14.5); RDW Standard Deviation 49.5 fL (36.4-46.3); Red Blood Count 3.03 M/uL (4.2-5.4); White Blood Count 8.46 K/uL (4.8-10.8)
[2022-03-22 08:01] LABS: Est GFR (African American) 115.8 ml/min; Potassium 3.8 mmol/L (3.5-5.1)
[2022-03-22 08:02] LABS: BUN Creatinine Ratio 38.5 (10-20); Creatinine Clr Calc Pharmacy 104.7 ml/min; Est GFR (Non-African American) 99.9 ml/min; Magnesium 1.7 mg/dl (1.7-2.4)
[2022-03-22] MEDS: PANTOprazole 40 MG in SYRINGE 0 ML IV SCH (08:39)
[2022-03-22] MEDS: POTASSIUM CHLORIDE CRTAB 20 MEQ TABCR PO SCH (08:39)
[2022-03-22] MEDS: METOPROLOL SUCC 25MG EXT REL TAB PO SCH (08:39)
[2022-03-22] MEDS: CHOLECALCIFEROL 5,000 UNITS 125 MCG TAB PO SCH (08:39)
[2022-03-22] MEDS: CIPROFLOXACIN HCL 0.3% OP SOLN 2.5 ML BTL OP SCH (08:40)
[2022-03-22] MEDS: CITALOPRAM 20 MG TAB PO SCH (08:40)
[2022-03-22] MEDS: levETIRAcetam 250 MG TAB PO SCH (08:40)
[2022-03-22] MEDS ORDERED: OPTIRAY 320 125ml IV ONE (12:31)
--- NOTE | 2022-03-22 12:39 | CT Scan Report ---
CT angio chest PE protocol CLINICAL HISTORY: PE TECHNIQUE: Multidetector row helical CT of the chest was performed with angiographic protocol. Rodriguez l and sagittal reformations were obtained. Coronal and sagittal MIPS were obtained from the axial brock a set and were submitted for review. Automated dose lowering techniques and/or adjustment according to patient size were utilized for this exam. CT DOSE: 254.49 mGy.cm Comparison: None available at the time of this dictation. FINDINGS: Lungs and pleura: Trace bilateral pleural effusions are seen. There is underlying atelectasis. Heart and pericardium: Heart size is normal. No pericardial effusion. Vessels: No evidence of pulmonary embolism. Mediastinum and darren: Unremarkable. Chest wall and lower neck: Surgical clips are seen in the right axilla. A right breast implant is see n. Abdomen: Unremarkable. Bones: Degenerative changes of the thoracic spine. Old healed rib fractures are seen. IMPRESSION: No evidence of pulmonary embolism. Atelectasis and trace bilateral pleural effusions. ACT 112: Negative or not required by law. Electronically signed by: Winston Owens M.D. 03/22/2022 12:37 PM
--- NOTE | 2022-03-22 14:48 | Hospitalist Progress Note ---
Date of Service March 22, 2022 Assessment & Plan (1) Observed seizure-like activity: Plan: Patient is a 81 yr female with H/O severe Alzheimer disease, nonambulatory status, and nonverbal, takes care of her at home, presents with a seizure episode, first episode. Seizure Acute metabolic Encephalopathy H/O Severe Dementia --EEG:Mild to moderate generalized nonspecifically abnormal EEG without focality without associated potentially epileptiform activity --CT Head:No acute intracerebral pathology. Cerebral cortical atrophy and remote small vessel disease. Continue Keppra Ativan as needed Seizure precautions Appreciate neurology input Needs follow-up with neurology upon discharge No aggressive measures as per family Mental status seemed to back to baseline SIRS No clear source of Infection CXR:No acute chest disease Blood Cultures: No growth Urine culture negative Empirically received Zosyn Paroxysmal Atrial Flutter --ECHO: Mild concentric LVH. Left ventricle wall motion is normal. EF 55 to 60%. Mild prolapse of posterior mitral valve leaflet. Mild to moderate MR. Moderate tricuspid regurgitation. Spontaneously converted to sinus Appreciate cardiology input Continue Metoprolol succinate 12.5 mg daily Poor candidate for anticoagulation IV Lopressor PRN Monitor electrolytes Hypokalemia Replace as needed Severe Alzheimer disease Bedbound, nonverbal at baseline Mental status progressively worsened as per family Case management to help with discharge planning Urine Retention Continue [place] Appreciate urology Input Voiding trial prior to discharge Needs follow up with Urology upon discharge Depression Continue Citalopram Hyperlipidemia Continue statin GI bleed PPI drip discontinued Monitor H&H GI consulted Avoid anticoagulation for now Continue to hold aspirin Continue PPI BID No aggressive measures as per family DVT Px: SCDs CODE STATUS DNI DNR Disposition Home Admission and Anticipated Discharge Date Admission Date: March 17, 2022 Subjective Patient is seen and examined at bedside Patient is nonverbal and does not follow commands Very pleasant, alert in no distress on exam today Saturating well on room air Review of Systems Review of Systems: Unobtainable due to cognitive status Physical Exam Physical Exam: Physical Exam: Vitals signs as noted above General Appearance:Thin, chronic ill appearing, Elderly, no apparent distress Head: normocephalic, Atraumatic Eyes: normal inspection, EOMI Neck: supple, Trachea midline Respiratory/Chest: Normal breath sounds, CTA, No accessory muscle use Cardiovascular: S1, S2, No murmur Abdomen/GI:Soft, Non tender, Bowel sounds present Extremities/Musculoskeletal:normal inspection, no edema Neurologic/Psych:Doesn't follow commands, +Dementia, Nonverbal, Essential tremor Skin: normal color, warm Results & Data Results & Data ([facility]) Vital Signs (Past 12 Hours) Vital Signs Temp Pulse Pulse Resp BP BP Pulse Ox 03/22/22 11:18 95 03/22/22 10:39 37.3 C 83 18 109/64 96 03/22/22 07:40 37.2 C 77 18 123/70 93 03/22/22 07:00 81 03/22/22 04:37 36.9 C 78 20 105/65 96 Laboratory Results Short CBC 03/22/22 Range/Units 06:31 WBC 8.46 (4.8-10.8) K/uL Hgb 9.4 L (12.0-16.0) g/dL Hct 28.1 L (37-47) % Plt Count 136 (130-400) K/uL BMP 03/22/22 06:31 Sodium 135 L Potassium 3.8 D Chloride 105 Carbon Dioxide 26 BUN 15 Creatinine 0.39 L Glucose 107 H Calcium 8.0 L
--- NOTE | 2022-03-22 15:06 | Discharge Summary ---
Date of Service March 22, 2022 Admission HPI Per Admitting Provider CHIEF COMPLAINT: seizures HISTORY OF PRESENT ILLNESS: This is a 81-year-old female with past medical history significant for hyperlipidemia, essential tremor, late onset Alzheimer disease, history of breast cancer, depression, who has severe dementia, is nonverbal and nonambulatory status, lives at home with and is the diagnostic radiologic technologist. He feeds her, he bathes her. He says she could not even stand up. Today, she woke 3 hours later than usual,. He woke her up and put her in the chair. He thought that then she had a seizure episode. It lasted for around 5-10 minutes. No biting of tongue or incontinence during the episode. Generally she has incontinence of urine and stool, but during the episode, she did not have any incontinence. No recent fever or chills. He says couple of months ago, she had vomiting that seemed to have blood in it, but after that it resolved. In the ER, she had a coffee-ground vomitus and gastric content was positive for Hemoccult. denies any diarrhea. Could not get any history from the patient. Hemodynamically stable. She was loaded with Keppra. Admission Exam Per Admitting Provider PHYSICAL EXAMINATION: GENERAL: The patient is of moderate build, not in acute distress. VITAL SIGNS: Temperature 36.8, pulse 108, respiratory rate 17, blood pressure 106/87, oxygen 93% on room air. HEENT: Pupils equal, round, and reactive to light. Oral mucosa moist. NECK: No JVD, no neck masses. CARDIOVASCULAR: S1 and S2 heard. Regular rate and rhythm. No murmur, no gallop. RESPIRATORY SYSTEM: Normal AP diameter. No accessory muscle use. No wheezing, no crackles. ABDOMEN: Soft. Bowel sounds are present, no distention, nontender. CENTRAL NERVOUS SYSTEM: Nonverbal,tremors seen, not oriented, does not obey any commands. EXTREMITIES: No edema, no erythema. Principal Diagnosis Seizure Acute metabolic Encephalopathy Paroxysmal Atrial Flutter Hypokalemia Urine Retention Gastrointestinal bleeding Discharge Data Allergies Allergy/AdvReac Type Severity Reaction Status Date / Time morphine AdvReac Unknown amnesia Verified 03/17/22 16:38 Consultations 03/17/22 19:32 ED Decision to Admit Stat 03/18/22 08:00 Consult Gastroenterology Routine Consult Neurology Routine 03/19/22 08:00 Consult Cardiology Routine 03/20/22 12:51 Consult Urology Routine Ordered Studies 03/17/22 14:36 CT head/brain wo con Stat 03/22/22 09:31 CT angio chest PE protocol Urgent Hospital Course (1) Observed seizure-like activity: Patient is a 81 yr female with H/O severe Alzheimer disease, nonambulatory status, and nonverbal, takes care of her at home, presents with a seizure episode, first episode. Seizure Acute metabolic Encephalopathy H/O Severe Dementia --EEG:Mild to moderate generalized nonspecifically abnormal EEG without focality without associated potentially epileptiform activity --CT Head:No acute intracerebral pathology. Cerebral cortical atrophy and remote small vessel disease. Continue Keppra Ativan as needed Seizure precautions Appreciate neurology input Needs follow-up with neurology upon discharge No aggressive measures as per family Mental status seemed to back to baseline SIRS No clear source of Infection CXR:No acute chest disease Blood Cultures: No growth Urine culture negative Empirically received Zosyn Paroxysmal Atrial Flutter --ECHO: Mild concentric LVH. Left ventricle wall motion is normal. EF 55 to 60%. Mild prolapse of posterior mitral valve leaflet. Mild to moderate MR. Moderate tricuspid regurgitation. Spontaneously converted to sinus Appreciate cardiology input Continue Metoprolol succinate 12.5 mg daily Poor candidate for anticoagulation IV Lopressor PRN Monitor electrolytes Hypokalemia Replace as needed Severe Alzheimer disease Bedbound, nonverbal at baseline Mental status progressively worsened as per family Case management to help with discharge planning Urine Retention Continue Barry Appreciate urology Input Voiding trial prior to discharge Needs follow up with Urology upon discharge Depression Continue Citalopram Hyperlipidemia Continue statin GI bleed PPI drip discontinued Monitor H&H GI consulted Avoid anticoagulation for now Continue to hold aspirin Continue PPI BID No aggressive measures as per family DVT Px: SCDs CODE STATUS DNI DNR Disposition Home Total Time Total Time Spent Total Time Spent (In Minutes): 45 minutes Discharge Plan Discharge Items Patient Disposition: Home - Self-Care Reason For Visit: SEIZURES Discharge Diagnosis: Seizure Acute metabolic Encephalopathy Paroxysmal Atrial Flutter Hypokalemia Urine Retention Gastrointestinal bleeding Activity: Per Instructions section Exercise/Sports: Wait until after follow-up appointment Non-emergency contact: Primary Care Provider, Neurologist and Urologist Call non-emergency contact if: you have any medication questions, your symptoms worsen, your pain is concerning for you and you have a fever Follow-up/Referrals: [facility] [Other] (The Urology office will call you with an appointment to address the barry catheter. [phone]) Yumiko Mckay PA-C [Physician Knifeman] - (Date & Time 04/24/2022 11:20 AM Provider Yumiko Mckay PA-C Department Neurology [facility] ) Deangelo Kuhn MD [Primary Care Provider] - (Date & Time 03/27/2022 12:20 PM Provider Veronica Layne PA-C Department Family Practice [facility] ) Diet: Regular Diet Texture: Pureed (blended smooth) Addtl Attending Provider Instructions: Follow-up with your primary care physician on 03/27/2022 12:20 PM Follow-up with his urologist in 2 weeks as recommended (for management of urinary retention) Follow-up with your neurologist Dr. Yumiko Jim/Yumiko Mckay PA-C in 4-6 weeks for further management of your seizure. Follow-up with your rigging and controls aircraft mechanic for further management if you have any recurrence of bleeding. Follow-up with your ent physician Dr. Luna in 4-6 weeks for management of atrial flutter. --Continue Barry catheter until follow-up with your urologist. -- Complete the antibiotic course Augmentin as prescribed for 3 more days. -- Blood cultures are pending at the time of discharge. Follow-up with your physician for results. Seek immediate medical attention if your symptoms reoccur or worsen Please take all medications as instructed on discharge list below. Please call if you have any questions or problems. You can reach a [facility] hospitalist on duty at [facility] 24 hours a day by calling [phone] Pending Studies at Discharge: Yes Studies:: Blood Cultures Stand-Alone Forms: My [facility] [employer], Smoking Cessation Medications and DC Order Prescriptions: New potassium chloride 20 mEq Tablet,Er Particles/Crystals 20 meq PO BID Qty: 20 RF: 0 levetiracetam [Keppra] 250 mg Tablet 250 mg PO BID Qty: 60 RF: 1 pantoprazole 40 mg Tablet,Delayed Release (Dr/Ec) 40 mg PO BID Qty: 60 RF: 1 metoprolol succinate 25 mg Tablet Extended Release 24 Hr 12.5 mg PO QAM Qty: 30 RF: 1 amoxicillin-pot clavulanate [Augmentin] 500-125 mg tablet 1 tab PO BID Qty: 6 RF: 0 Continued aspirin 81 mg Tablet,Delayed Release (Dr/Ec) 81 mg PO QAM RF: 0 acetaminophen 500 mg Tablet 1,000 mg PO Q6H PRN (Reason: Fever Or Pain) RF: 0 simvastatin 40 mg Tablet 40 mg PO PM RF: 0 calcium carbonate [Calcium 600] 600 mg calcium (1,500 mg) Tablet 600 mg PO QAM RF: 0 citalopram 10 mg tablet 10 mg PO Q OTHER DAY RF: 0 cholecalciferol (vitamin D3) [Vitamin D3] 125 mcg (5,000 unit) Tablet 125 mcg PO DAILY RF: 0 Discharge Orders: Discharge Order (Routine); Ordered 03/22/22 Ordered By: Prince Horta Admission Data Admit Date/Time: 03/17/22 20:41 Attending Provider: Prince Horta Admit Provider: Vamshi Pardo Primary Care Provider: Deangelo Kuhn Other Providers: Vamshi aPrdo ; Martha Mariano ; Yumiko Jim ; Eron Briones ; Onur Banks ; Janusz Luna ; Selvin Robles ; Sahil Arechiga ; Romero Castaneda ; Jeana Hobson ; Yumiko Raman ; Syeda Frost ; Yinka Etienne ; Kenny Moreno ; Eron Mcleod ; Aleksandr Justice ; Amber Morin ; Chevy Frye ; Fabienne Gallegos ; Lexie Nguyễn ; Mariah Gómez ; Antelmo Paula ; Selvin Myles ; Carol Hancock ; Odalis Gómez ; John Corbin
[2022-03-22] MEDS ORDERED: PANTOprazole 40 MG TAB PO SCH (21:00)
[2022-03-22] MEDS ORDERED: POTASSIUM CHLORIDE CRTAB 20 MEQ TABCR PO SCH (21:00)
== END 2022-03-22 17:05 | disposition home or self-care (01) | DRG 100 ==
LOC: ED 14:17 → 2S 20:41